=== PATIENT | female | born 1980 | race Caucasian/White ===

== ENCOUNTER 2019-11-23 13:06 | Outpatient (CLI) | payer BC, SELFPAY ==
--- NOTE | 2019-11-28 10:36 | ONC FU_ITS ---
[facility] Patient Note Patient: Ghada Avlarez Unit #: [id number]: [id number] Dictated By: Chris NogueraDate of Visit: Nov 23, 2019 Onc MED Follow-Up/Prog Note Chief Complaint: Vaginal cancer. 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 She had presented to Dr. Chase with complaint of enlarging glands in the vaginal area. Her exam showed 2 lumps within the posterior vaginal wall in the area of scarring, each measuring 1 to 1-1/2 cm. On 10/12/2018 she underwent excision of vaginal wall cysts and anal sphincteroplasty. The operative report describes the first cyst having been completely excised. With the second cyst, in the area closer to the hymenal ring, she was found to have multiple small thick mucousy cystic areas. The excised area was estimated at 1-1/2 to 2 cm in diameter. Pathology was consistent with mucinous adenocarcinoma. Staging CT abdomen/pelvis on 10/19/2018 showed evidence of prior gastric sleeve procedure and appendectomy but no acute findings and no evidence of neoplastic process. A 4 mm right lower lobe lung nodule was incompletely included. Further evaluation with PET/CT on 10/23/2018 showed increased uptake in the vaginal canal with SUV 15.2. It was noted to possibly represent postsurgical inflammation, but sites of residual malignancy could not be excluded. There was no evidence of metastatic disease. She was referred to [facility] for further evaluation and management. She then underwent radiation concurrently with weekly cisplatin starting 12/28/2018. As of 02/10/2019 she had received 6 cycles of weekly cisplatin. Her treatment was complicated by anemia and neutropenia, severe enough that she required transfusion and growth factor support. 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 Per genetic counseling patient is high risk for hematological malignancies, somewhere in the range of 30-45% lifetime risk. There is additional risk of squamous cell carcinoma of head/neck, and skin and anogenital track cancers are also greatly increased and typically arises from leukoplakia. She is also at increased risk for idiopathic pulmonary fibrosis or idiopathic liver fibrosis. Screening recommendations in patients with dyskeratosis congenita include CBC every 6 month to annually, baseline bone marrow with cytogenetics and molecular studies, annual dermatology consultation, annual [employer] screening for women, and ENT evaluation every 3-5 years with laryngoscopy. She is scheduled to have bone marrow aspiration/biopsy with her followups at [facility]. Her medical history is significant for previous gastric sleeve procedure with subsequent B12 deficiency and vitamin D deficiency. She has metabolic syndrome and suspected celiac disease. She has chronic musculoskeletal pain, felt to be consistent with fibromyalgia syndrome, though she also was noted to have persistently elevated CRP and sedimentation rate. She has restless leg syndrome. She is a nonsmoker. She does not drink alcohol. Ms. Alvarez is here today for a rescheduled follow-up. She states that she has been [facility] recently and had a really good work-up there. There is no sign of any cancer. States she got really good news. She continues to have swelling in her lower extremities despite the Lasix. She also continues to have very tender skin and muscles. We did review her labs from October including her tick panel which was negative. She was vitamin D deficient at 27 at that time. She states that is been an ongoing problem. Her vitamin B-12 on the low side of normal at 355. She states she has had B12 supplements in the past and this made her feel a lot better. She denies any new pain. She states other than the swelling in her legs and the skin/muscle tenderness she feels pretty good. She denies any fever or chills. She said no mouth sores, sore throat or difficulty swallowing. Her recent vaginal infection has finally cleared up. She is had no further problems. She denies any nausea or vomiting. She has had no constipation or diarrhea. Her ECOG is 0. Past Medical History: B 12 deficiency Bone pain Celiac disease Lung nodule Metabolic syndrome Myalgia Restless leg syndrome Short telomere syndrome/dyskeratosis congenita Vitamin d deficiency Past Surgical History: Appendectomy Bilateral laser eye surgery Gastric sleeve Left ACL repair Repair of left knee Allergies: cinnamon oil Medications: Furosemide 2 Tablet (of 40 mg) Oral daily K-Tab 1 Tablet (of 10 meq) Tablet, controlled release Oral daily Osphena 1 Tablet (of 60 mg) Oral b.i.d. Family History: Ms. Alvarez's mother is alive. Ms. Alvarez's father at age 48: leukemia. Her father of leukemia at age 48, presumably related to the short telomere syndrome. Social History: Ms. Alvarez is and she is an unknown. Ms. Alvarez has never smoked. She has no history of drinking. She is a nonsmoker. She does not drink alcohol. Review Of Symptoms: Constitutional some fatigue but remains active. Allergic/Immunologic No reactions. Eyes Denies significant visual changes. No diplopia. No amaurosis. ENMT Denies changes in hearing, sore throat, mouth sores, difficulty or changes in swallowing ability, and/or sinus drainage. Hematologic/Lymphatic Denies easy bruising or bleeding. The patient denies any tender or palpable lymph nodes. Respiratory Denies dyspnea on exertion, chest pain, cough or hemoptysis. Denies orthopnea. Cardiovascular Denies anginal chest pain, palpitations or orthopnea. Gastrointestinal Denies nausea, vomiting, diarrhea, GI bleeding, or constipation. Denies change in bowel habits and/or stool color, no heartburn or early satiety. Genitourinary (F) No hematuria, hesitancy, incontinence, vaginal bleeding, discharge or other problems with urination. Musculoskeletal Muscles and skin/tissue hurts when you touch it at times . My cat touched my rib area and the tenderness was unbelievable . Swelling in her lower extremities. Integumentary Denies chronic rashes, inflammation, ulcerations or skin changes. Neurologic Denies headache, blurred vision, and no areas of focal weakness or numbness. Normal gait. No sensory problems. Psychiatric Denies insomnia, depression, sarah or mood swings. Vital Signs: Performed on Nov 23, 2019 13:14 Height - 66.00 in Weight - 213.2 lbs (HIGH) BSA - 2.06 sq.m BMI - 34.41 (HIGH) Temperature - 98.0 F (LOW) Pulse - 75 /min Respiration - 24 /min BP - 119/71 mm(hg) O2 Sat - 98 % Pain - 0,0 - Fully active, able to carry on all predisease activities without restrictions. (ECOG) Physical Examination: Constitutional Alert, oriented, no acute distress. Skin pink, warm and dry. Head Normocephalic; atraumatic. Eyes Conjunctivae and sclerae are clear and without icterus. Pupils are reactive and equal. Neck Supple without masses or thyromegaly. No jugular venous distension. Hematologic/Lymphatic No petechiae or purpura. Respiratory Lungs are clear to auscultation without rhonchi or wheezing. Cardiovascular Regular rate and rhythm of heart without murmurs,clicks, gallops or rubs. Back/Spine Non-tender to palpation. Extremities No visible deformities, no cyanosis, clubbing. 1-2+ bilateral lower extremity edema. Musculoskeletal No tenderness or swelling, normal range of motion without obvious weakness. Integumentary No rashes or lesions. Neurologic No sensory or motor deficits, normal cerebellar function, normal gait. Psychiatric Alert and oriented times three. Coherent speech. Verbalizes understanding of our discussions today. Laboratory: Impression: 1. Patient with mucinous adenocarcinoma involving posterior vaginal wall cysts. By TNM classification her disease would be stage I (T1, N0, M0), but the relevance of that is uncertain with a mucinous adenocarcinoma. 2. She underwent local excision of 2 areas of involvement in the vaginal wall on 10/12/2018. 3. She then underwent radiation concurrently with weekly cisplatin chemotherapy, completed on 02/10/2019. 4. Her treatment was complicated by anemia and severe neutropenia, requiring transfusion and growth factor support. 5. 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 Her other medical illnesses include: 6. Metabolic syndrome. 7. She is status post gastric sleeve procedure. 8. She has a history of B12 deficiency and vitamin D deficiency. 9. She has had chronic musculoskeletal pain, felt to be consistent with fibromyalgia syndrome. 10. She has restless leg syndrome. 11. Celiac disease was suspected, but not confirmed. At this point she does appear to be showing gradual recovery following her chemoradiation. She continues to have muscle/skin tenderness of unknown etiology. She continues to have lower extremity edema. Plan: 1. Vitamin D 1.25 mg (50,000 IU) weekly x 12 weeks then monthly for vitamin D deficiency. Also B12 1000 mg weekly x 4 weeks then monthly-plans to administer at home. 2. Bumex-stop Lasix 3. Monthly port flush and CBC, CMP. In the interim may add BMP to port flush if on Bumex more that 3 days at a time-she does have potassium at home and was encouraged to take one daily with Bumex. 4. Plan for followup after her re evaluation at [facility] in January 2020. 5. Ms Alvarez was encouraged to call us in the interim if questions or problems arise. Signed By: Chris Noguera-, AOCNP Samm Crespo MD <<Signature on File>>
== END 2019-11-23 13:07 | disposition home or self-care (01) ==
LOC: ONCMED 13:08
PROVIDERS: Family Provider Electrodiagnostic Medicine; PCP Electrodiagnostic Medicine; Visit Provider Nurse Practitioner
DX: Z08 Encounter for follow-up examination after completed treatment for malignant neoplasm (principal); Z85.44 Personal history of malignant neoplasm of other female genital organs; E53.8 Deficiency of other specified B group vitamins; E55.9 Vitamin D deficiency, unspecified; K90.89 Other intestinal malabsorption; M79.7 Fibromyalgia; G25.81 Restless legs syndrome; R60.0 Localized edema; Q82.8 Other specified congenital malformations of skin; Z98.84 Bariatric surgery status; Z79.899 Other long term (current) drug therapy; Z92.3 Personal history of irradiation; Z92.21 Personal history of antineoplastic chemotherapy
CPT/HCPCS: 99214

== ENCOUNTER 2020-01-20 08:51 | Outpatient (CLI) | payer BC, SELFPAY ==
[2020-01-20 09:46] LABS: Alanine Aminotransferase 13 U/L (0-33); Albumin Level 4.2 g/dL (3.5-5.2); Alkaline Phosphatase 131 IU/L (35-105); Anion Gap 14.2 (5-19); Aspartate Amino Transferase 18 U/L (0-32); Blood Urea Nitrogen 11 mg/dL (6-20); Calcium 9.8 mg/dL (8.5-10.5); Carbon Dioxide 27 mmol/L (22-29); Chloride 107 mmol/L (98-107); Globulin 3.2 g/dL (1.3-4.6); Glucose 80 mg/dL (65-115); Osmolality Calculated 293 mOsm/kg (285-295); Potassium 4.2 mmol/L (3.5-5.1); Sodium 144 mmol/L (136-145); Total Bilirubin 0.9 mg/dL (0.15-1.2); Total Protein 7.4 g/dL (6.6-8.7)
[2020-01-20 09:55] LABS: Basophils % 0.4 %; Eosinophils # 0.1 10^3/uL (0.0-0.8); Eosinophils % 1.7 %; Hematocrit 37.4 % (37.0-47.0); Hemoglobin 12.6 g/dL (11.5-15.3); Lymphocytes # 1.1 10^3/uL (0.8-4.8); Lymphocytes % 20.7 %; Mean Corpuscular HGB Conc 33.7 g/dL (30.0-36.0); Mean Corpuscular Hemoglobin 33.6 pg (28.0-34.0); Mean Corpuscular Volume 99.7 fL (81-99); Monocytes # 0.6 10^3/uL (0.2-0.9); Monocytes % 11.8 %; Neutrophils # 3.4 10^3/uL (1.8-7.7); Neutrophils % 64.8 %; Nucleated Red Blood Cells % 0 %; Platelet Count 204 10^3/cmm (130-400); Red Blood Count 3.75 10^6/uL (4.1-5.3); Red Cell Distribution Width 12.9 % (12.1-15.1); White Blood Count 5.2 10^3/uL (4.0-10.0)
== END 2020-01-20 08:52 | disposition home or self-care (01) ==
LOC: ONCMED 08:53
PROVIDERS: Family Provider Electrodiagnostic Medicine; PCP Electrodiagnostic Medicine; Visit Provider Nurse Practitioner
DX: C52 Malignant neoplasm of vagina (principal); E55.9 Vitamin D deficiency, unspecified; D64.9 Anemia, unspecified
CPT/HCPCS: 36591; 80053; 85025

== ENCOUNTER 2020-01-22 09:50 | Emergency (ER) | payer BC, SELFPAY ==
[2020-01-22 09:55] VITALS: BP 128/66; PULSE 57; RESP 17; TEMP 36.9; O2SAT 99; BMI 34.9
--- NOTE | 2020-01-22 10:05 | ED_ITS ---
Entered by Carmen Butler, acting as scribe for Domingo Reyna DO HPI - Fever General: Chief Complaint: General Medical Stated Complaint: flu like symptoms Time Seen by Provider: 01/22/20 09:52 Source: patient Mode of arrival: ambulatory Limitations: no limitations History of Present Illness: HPI Narrative: 45 yo Female presents to ED with complaint of fever and flu like symptoms. Pt states that she has beat cancer, muscinocarcinoma, and since then her immune system has tanked. Pt states that she has had a fever, generalized weakness, and fatigue. Pt states that she has been coughing some and had some green sputum. Pt states that [facility] nurse told her that she had some wheezing. Pt states that she has also had some diarrhea. Pt states that she is no longer receiving treatment for her cancer since last year. Pt states that her primary care physician is Dr. Guo. MD elicited complaint: fever, malaise and weakness Pertinent past history: immunosuppression Onset (ago): week(s) Exacerbating factors: nothing Relieving factors: nothing Associated symptoms: Reports cough and diarrhea; Deny nausea or vomiting Review of Systems General: Reports: 10 or more systems reviewed and unremarkable except in HPI and below GI: Reports: diarrhea; Denies: nausea or vomiting PFSH ED PFSH: Medical History Menopause ovarian failure She was counseled regarding FSH level was suggesting ovarian failure due to radiation therapy her for vaginal malignancy. He was encouraged to continue use Osphena for her dyspareunia. Follow-up in one month. Mucinous adenocarcinoma Incidental finding at the time of excision of posterior vaginal wall cyst performed on 10/12/2018. Patient being evaluated by general surgery. Patient has also been referred to [facility] in [place] by Dr. Hardin. She was counseled regarding the pathology report of mucinous adenocarcinoma. She recently had a PET scan that was negative. She was informed by general surgeon that PET scan was negative and she is concern. 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 Pseudomyxoma peritonei develops at a variable rate, but may grow at a slower rate (indolent) than other malignancies within the abdomen which can explain the negative PET scan and incidental finding in the rectovaginal biopsy. If this is in fact pseudomyxoma peritonei the patient will be better served by referring her to a center with experience with this rare disease of approximately 2 cases per million individuals. I [facility] Dr. Wei Gonzalez who is nationally recognized expert in treating Mucinous adenocarcinomas. 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 This is a commonly observed side effect of such treatment. Her vaginal stenosis can be graded to grade 2, meaning vaginal narrowing and shortening interfering with sexual function. She was counseled regarding all treatment modalities include irregular nonnarcotic pain medication, intermittent hormonal cream, vaginal dilatation, and use of artificial lubrication. She referred she was advised not to use any hormones. Would consider treating with Osphena since is not hormonal treatment, but she was advised to continue with vaginal dilation stretch the vaginal mucosa breakdown adhesions to maintain vaginal patency. time 30 min Surgical History History of appendectomy History of dilation and curettage History of gastric surgery History of radial keratotomy History of repair of anterior cruciate ligament of left knee S/P laser cataract surgery Status post surgery (~10/12/18) Excision of vaginal wall cyst--Performed by Dr. Douglas Chase at [facility] in [place], [place]. Final pathology showed mucinous adenocarcinoma. Family History Grandmother Heart disease Paternal Lupus Paternal Diabetes Paternal Hypertension Paternal Unknown Patient denies medical problems Denies family history of: stroke, hypercholesterolemia, thryoid problems, breast cancer, ovarian cancer, uterine cancer,or colon cancer Social History Smoking and tobacco status: never smoked Alcohol intake: current Alcohol intake frequency: holidays/special occasions on ly Physical Exam Const: COMMON NORMALS: no apparent distress, average body habitus, oriented x3, no limitations, healthy appearing, alert and well nourished HENMT: COMMON NORMALS: normocephalic, head/scalp atraumatic, hearing grossly normal bilaterally, external ears normal, EAC's normal, TM's normal bilaterally, external nose normal, nasal mucous membranes and turbinates normal, moist oral mucous membranes, oropharynx normal, dentition normal and gingiva normal HEAD & SCALP: normocephalic and atraumatic NOSE: external nose normal and nasal mucous membranes and turbinates normal EXTERNAL EAR: Yes external ears normal EXTERNAL AUDITORY CANAL: EAC's normal TYMPANIC MEMBRANE: TM's normal bilaterally Eye: COMMON NORMALS: PERRL, EOMs intact bilaterally, conjunctivae normal, no scleral icterus, no papilledema, normal visual madrid by confrontation and fundi normal bilaterally CONJUNCTIVA: Yes conjunctivae normal PUPIL: Yes PERRL DIRECT OPHTHALMOSCOPY: Yes no papilledema and Yes fundi normal bilaterally Neck/C-Spine: COMMON NORMALS: full ROM, no lymphadenopathy, supple, no meningeal signs, no JVD, thyroid normal and no carotid bruits THYROID: thyroid normal Chest: COMMONS NORMALS: inspection of chest normal and palpation of chest normal Resp: COMMON NORMALS: normal respiratory effort, no retractions, no use of accessory muscles, clear to auscultation bilaterally and percussion normal AUSCULTATION: clear to auscultation bilaterally PERCUSSION: percussion normal Cardio: COMMON NORMALS: no JVD, regular rate, regular rhythm, S1 normal heart sound, S2 normal heart sound, no gallops, no clicks, no murmurs, no rub and peripheral pulses 2+ throughout RATE: regular rate RHYTHM: regular rhythm HEART SOUNDS: S1 normal and S2 normal PERIPHERAL PULSES: pulses 2+ throughout GI: COMMON NORMALS: normal to inspection, nondistended, normoactive bowel sounds, soft to palpation, non-tender, no hepatosplenomegaly, no masses and no bruits PALPATION: Yes soft and Yes no hepatosplenomegaly : COMMON NORMALS: Yes no CVA tenderness and Yes external appearance normal BLADDER/KIDNEY EXAM: Yes no CVA tenderness Back/Pelvis: COMMON NORMALS: no CVA tenderness, thoracic and lumbar spine normal to inspection, no thoracic nor lumbar tenderness, thoraco-lumbar ROM normal and straight leg raise negative bilaterally Extremity: COMMON NORMALS: normal to inspection, full ROM, normal capillary refill, no joint enlargement, no clubbing, cyanosis or edema, no calf tenderness and no pedal edema Neuro: COMMON NORMALS: oriented x3 SENSORIUM/ORIENTATION: Yes alert MENINGEAL SIGNS: Yes no meningeal signs Skin: COMMON NORMALS: no rashes or lesions noted, no wounds, skin turgor normal, no jaundice, no petechiae and no mottling GENERAL SKIN EXAM: no rashes or lesions noted and turgor normal Course Vital Signs: Vital signs: Vital Signs Temperature 98.4 F 01/22/20 09:55 Pulse Rate 57 L 01/22/20 09:55 Respiratory Rate 17 01/22/20 09:55 Blood Pressure 128/66 01/22/20 09:55 Pulse Oximetry 99 01/22/20 09:55 MDM - Fever Lab Data: Labs: Lab Results 01/22/20 01/22/20 01/22/20 Range/Units 10:20 10:20 10:20 WBC 4.9 (4.0-10.0) 10^3/ uL RBC 3.76 L (4.1-5.3) 10^6/u L Hgb 12.5 (11.5-15.3) g/dL Hct 37.6 (37.0-47.0) % MCV 100.0 H (81-99) fL MCH 33.2 (28.0-34.0) pg MCHC 33.2 (30.0-36.0) g/dL RDW 12.9 (12.1-15.1) % Plt Count 186 (130-400) 10^3/c mm MPV 9.7 (7.4-10.4) fL Neut % (Auto) 60.4 % Lymph % (Auto) 24.6 % Juncos % (Auto) 11.7 % Eos % (Auto) 2.3 % Baso % (Auto) 0.4 % Neut # (Auto) 2.9 (1.8-7.7) 10^3/u L Lymph # (Auto) 1.2 (0.8-4.8) 10^3/u L Juncos # (Auto) 0.6 (0.2-0.9) 10^3/u L Eos # (Auto) 0.1 (0.0-0.8) 10^3/u L Baso # (Auto) 0.0 (0.0-0.1) 10^3/u L Nucleated RBC % (a uto) 0 % Nucleated RBCs # 0.0 /100WBC Sodium 140 (136-145) mmol/L Potassium 4.0 (3.5-5.1) mmol/L Chloride 105 (98-107) mmol/L Carbon Dioxide 24 (22-29) mmol/L Anion Gap 15.0 (5-19) BUN 11 (6-20) mg/dL Creatinine 0.7 (0.5-0.9) mg/dL GFR Calculation 92.2 (90-130) mL/min Glucose 113 (65-115) mg/dL Calculated Osmolal ity 287 (285-295) mOsm/k g Lactate 1.0 (0.5-2.2) mmol/L Calcium 9.6 (8.5-10.5) mg/dL Total Bilirubin 1.1 (0.15-1.2) mg/dL AST 15 (0-32) U/L ALT 11 (0-33) U/L Alkaline Phosphata se 129 H (35-105) IU/L Total Protein 7.1 (6.6-8.7) g/dL Albumin 3.8 (3.5-5.2) g/dL Globulin 3.3 (1.3-4.6) g/dL Urine Color (Yellow) Urine Appearance (CLEAR) Urine pH (5-7) Ur Specific Gravit y (1.005-1.030) Urine Protein (Negative) Urine Glucose (UA) (Normal) Urine Ketones (Negative) Urine Blood (Negative) Urine Nitrate (Negative) Urine Bilirubin (NEGATIVE) Urine Urobilinogen (Negative) mg/dL Ur Leukocyte Danielle ase (Negative) Urine RBC (0-2) /hpf Urine WBC (0-5) /hpf Ur Squamous Epith Cells (0-5) Urine Bacteria (NONE) Influenza Type A A g (Negative) POC Influenza B Ag (Negative) 01/22/20 01/22/20 Range/Units 10:35 11:47 WBC (4.0-10.0) 10^3/ uL RBC (4.1-5.3) 10^6/u L Hgb (11.5-15.3) g/dL Hct (37.0-47.0) % MCV (81-99) fL MCH (28.0-34.0) pg MCHC (30.0-36.0) g/dL RDW (12.1-15.1) % Plt Count (130-400) 10^3/c mm MPV (7.4-10.4) fL Neut % (Auto) % Lymph % (Auto) % Juncos % (Auto) % Eos % (Auto) % Baso % (Auto) % Neut # (Auto) (1.8-7.7) 10^3/u L Lymph # (Auto) (0.8-4.8) 10^3/u L Juncos # (Auto) (0.2-0.9) 10^3/u L Eos # (Auto) (0.0-0.8) 10^3/u L Baso # (Auto) (0.0-0.1) 10^3/u L Nucleated RBC % (a uto) % Nucleated RBCs # /100WBC Sodium (136-145) mmol/L Potassium (3.5-5.1) mmol/L Chloride (98-107) mmol/L Carbon Dioxide (22-29) mmol/L Anion Gap (5-19) BUN (6-20) mg/dL Creatinine (0.5-0.9) mg/dL GFR Calculation (90-130) mL/min Glucose (65-115) mg/dL Calculated Osmolal ity (285-295) mOsm/k g Lactate (0.5-2.2) mmol/L Calcium (8.5-10.5) mg/dL Total Bilirubin (0.15-1.2) mg/dL AST (0-32) U/L ALT (0-33) U/L Alkaline Phosphata se (35-105) IU/L Total Protein (6.6-8.7) g/dL Albumin (3.5-5.2) g/dL Globulin (1.3-4.6) g/dL Urine Color Yellow (Yellow) Urine Appearance Sl hazy (CLEAR) Urine pH 7 (5-7) Ur Specific Gravit y 1.010 (1.005-1.030) Urine Protein Neg (Negative) Urine Glucose (UA) Norm (Normal) Urine Ketones Negative (Negative) Urine Blood Neg (Negative) Urine Nitrate Negative (Negative) Urine Bilirubin Neg (NEGATIVE) Urine Urobilinogen Norm (Negative) mg/dL Ur Leukocyte Danielle ase 2+ H (Negative) Urine RBC 0-4 H (0-2) /hpf Urine WBC 15-25 H (0-5) /hpf Ur Squamous Epith Cells 0-4 H (0-5) Urine Bacteria 1+ H (NONE) Influenza Type A A g Negative (Negative) POC Influenza B Ag Negative (Negative) Imaging Data^: CXR: Radiologist's impression: [facility] [address] [place] [address] XRay Report Signed Patient: Ghada Alvarez #: [id number] : 1980Acct#:[id number] Age/Sex: 39 / FADM Date: 01/22/20 [facility] Attending Dr: Ordering Provider/Ordering MD: Domingo Reyna DO Date of Service: 01/22/20 Procedure(s): XR chest 1V portable [id number] Accession Number(s): [id number] Report Number: [id number] PROCEDURE INFORMATION: Exam: XR Chest, 1 View Exam date and time: 01/22/2020 10:12 AM Age: 39 years old Clinical indication: Dyspnea; Prior surgery; Surgery date: 6+ months; Surgery type: Port TECHNIQUE: Imaging protocol: XR of the chest Views: 1 view. COMPARISON: No relevant prior studies available. FINDINGS: Tubes, catheters and devices: Right IJ medication port with tip near the cavoatrial junction. Lungs: Lungs well expanded with no consolidation. Pleural space: Unremarkable. No evidence of pleural effusion or pneumothorax. Heart/Mediastinum: Cardiac silhouette upper normal. Bones/joints: Unremarkable. XR/XR chest 1V portable [id number] IMPRESSION: No acute radiographic findings. Dictated By:Barry Ha MD Signed By:Barry Ha MDSigned Date/Time:01/22/20 1101 DD/ 1100 Discharge Plan Discharge Patient Disposition: Home, Self-Care Clinical Impression: Sinusitis Qualifiers: Sinusitis location: maxillary Chronicity: acute Recurrence: non-recurrent Qualified Code(s): J01.00 - Acute maxillary sinusitis, unspecified Urinary tract infection Qualifiers: Urinary tract infection type: acute cystitis Hematuria presence: with hematuria Qualified Code(s): N30.01 - Acute cystitis with hematuria Condition: Stable Prescriptions: New Augmentin 875-125 mg tablet 1 tab PO BID Qty: 30 RF: 0 prednisone 10 mg tablets,dose pack See Rx Instructions .ROUTE .COMPLEX Qty: 21 RF: 0 No Action Osphena 60 mg tablet 60 mg PO DAILY RF: 0 bumetanide 2 mg tablet 2 mg PO DAILY RF: 0 furosemide 40 mg tablet 40 mg PO DAILY PRN (Reason: swelling) RF: 0 Discharge Orders: Discharge Order (Routine); Ordered 01/22/20 Ordered By: Domingo Reyna Referrals: Kedar Guo DO [Primary Care Provider] - Patient Instructions: Sinusitis (ED) Coding Level of Care Code ED Rooming House Keeper for Chg Fwd Exam Comprehensive The documentation recorded by the Luke pinedo Carmen, accurately reflects the service I personally performed and the decisions made by Maribell mar Donald P, DO Jan 22, 2020 09:50
--- NOTE | 2020-01-22 10:10 | XRR_ITS ---
PROCEDURE INFORMATION: Exam: XR Chest, 1 View Exam date and time: 01/22/2020 10:12 AM Age: 39 years old Clinical indication: Dyspnea; Prior surgery; Surgery date: 6+ months; Surgery type: Port TECHNIQUE: Imaging protocol: XR of the chest Views: 1 view. COMPARISON: No relevant prior studies available. FINDINGS: Tubes, catheters and devices: Right IJ medication port with tip near the cavoatrial junction. Lungs: Lungs well expanded with no consolidation. Pleural space: Unremarkable. No evidence of pleural effusion or pneumothorax. Heart/Mediastinum: Cardiac silhouette upper normal. Bones/joints: Unremarkable. XR/XR chest 1V portable [id number] IMPRESSION: No acute radiographic findings.
--- NOTE | 2020-01-22 10:30 | PC.NURSE ---
Implanted venous port accessed ( right upper chest ). Sterile technique used.
[2020-01-22 10:38] LABS: Basophils % 0.4 %; Eosinophils # 0.1 10^3/uL (0.0-0.8); Eosinophils % 2.3 %; Hematocrit 37.6 % (37.0-47.0); Hemoglobin 12.5 g/dL (11.5-15.3); Lymphocytes # 1.2 10^3/uL (0.8-4.8); Lymphocytes % 24.6 %; Mean Corpuscular HGB Conc 33.2 g/dL (30.0-36.0); Mean Corpuscular Hemoglobin 33.2 pg (28.0-34.0); Mean Platelet Volume 9.7 fL (7.4-10.4); Monocytes # 0.6 10^3/uL (0.2-0.9); Monocytes % 11.7 %; Neutrophils # 2.9 10^3/uL (1.8-7.7); Neutrophils % 60.4 %; Nucleated Red Blood Cells % 0 %; Platelet Count 186 10^3/cmm (130-400); Red Blood Count 3.76 10^6/uL (4.1-5.3); Red Cell Distribution Width 12.9 % (12.1-15.1); White Blood Count 4.9 10^3/uL (4.0-10.0)
[2020-01-22] MEDS: sodium chloride 0.9% 500 ML IV (10:45)
[2020-01-22 10:55] LABS: Alanine Aminotransferase 11 U/L (0-33); Albumin Level 3.8 g/dL (3.5-5.2); Alkaline Phosphatase 129 IU/L (35-105); Aspartate Amino Transferase 15 U/L (0-32); Blood Urea Nitrogen 11 mg/dL (6-20); Calcium 9.6 mg/dL (8.5-10.5); Carbon Dioxide 24 mmol/L (22-29); Chloride 105 mmol/L (98-107); Creatinine Clr Calc Pharmacy 120.7179; Globulin 3.3 g/dL (1.3-4.6); Glomerular Filtration Rate 92.2 mL/min (90-130); Glucose 113 mg/dL (65-115); Osmolality Calculated 287 mOsm/kg (285-295); Sodium 140 mmol/L (136-145); Total Bilirubin 1.1 mg/dL (0.15-1.2); Total Protein 7.1 g/dL (6.6-8.7)
[2020-01-22 11:06] LABS: Influenza A by IFA Negative (Negative); Influenza B by IFA Negative (Negative)
[2020-01-22 11:58] LABS: Add Urine Microscopic? YES; Bilirubin Urine Neg (NEGATIVE); Blood Urine Neg (Negative); Glucose Urine UA Norm (Normal); Ketones Urine Negative (Negative); Leukocyte Esterase Urine 2+ (Negative); Nitrate Urine Negative (Negative); Protein Urine Neg (Negative); Urine Appearance SL Hazy (CLEAR); Urine Color Yellow (Yellow); Urobilinogen Urine Norm (Negative); pH Urine 7 (5-7)
[2020-01-22 12:06] LABS: Add Urine Culture? Yes; Bacteria Urine 1+; RBC Urine 0-4 /hpf (0-2); Squamous Epithelial Cell Urine 0-4 (0-5); WBC Urine 15-25 /hpf (0-5)
== END 2020-01-22 12:45 | disposition home or self-care (01) ==
PROVIDERS: Emergency Provider Family Medicine; Family Provider Electrodiagnostic Medicine; PCP Electrodiagnostic Medicine
DX: J32.9 Chronic sinusitis, unspecified (principal); N39.0 Urinary tract infection, site not specified
CPT/HCPCS: 12345; 36415; 71045; 80053; 81001; 83605; 85025; 87040; 87086; 87804; 96360; 99282; 99283; A9270; J7040

== ENCOUNTER 2020-02-09 19:03 | Emergency (ER) | payer BC, SELFPAY ==
[2020-02-09 19:11] VITALS: BP 126/70; PULSE 56; RESP 16; TEMP 36.8; O2SAT 97; BMI 34.9
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
[2020-02-09] MEDS: ondansetron 2 mg/ML SDV 2 mL 4 MG IVP (20:31)
[2020-02-09] MEDS: morphine 4 mg/mL SDV 1 mL IVP (20:32)
[2020-02-09] MEDS: cyclobenzaprine 10 mg Tablet PO (21:49)
[2020-02-09] MEDS: HYDROcodone-acetaminophen 5-325 mg Tablet 2 TAB PO (21:50)
[2020-02-09 22:12] VITALS: BP 136/84; PULSE 86; RESP 16; O2SAT 99
== END 2020-02-09 22:14 | disposition home or self-care (01) ==
PROVIDERS: Emergency Provider Physician Assistant; Family Provider Electrodiagnostic Medicine; PCP Electrodiagnostic Medicine
DX: S22.31XA Fracture of one rib, right side, initial encounter for closed fracture (principal); V29.9XXA Motorcycle rider (driver) (passenger) injured in unspecified traffic accident, initial encounter
CPT/HCPCS: 12345; 71250; 96374; 96375; 99282; 99283; J1642; J2270; J2405

== ENCOUNTER 2020-02-20 13:16 | Outpatient (CLI) | payer BC, SELFPAY ==
[2020-02-20 13:48] LABS: Basophils % 0.4 %; Eosinophils # 0.1 10^3/uL (0.0-0.8); Hematocrit 37.6 % (37.0-47.0); Hemoglobin 12.4 g/dL (11.5-15.3); Lymphocytes # 1.3 10^3/uL (0.8-4.8); Lymphocytes % 26.1 %; Mean Corpuscular Hemoglobin 32.8 pg (28.0-34.0); Mean Corpuscular Volume 99.5 fL (81-99); Mean Platelet Volume 9.4 fL (7.4-10.4); Monocytes # 0.8 10^3/uL (0.2-0.9); Neutrophils # 2.8 10^3/uL (1.8-7.7); Neutrophils % 56.1 %; Nucleated Red Blood Cells % 0 %; Platelet Count 199 10^3/cmm (130-400); Red Blood Count 3.78 10^6/uL (4.1-5.3); Red Cell Distribution Width 13.2 % (12.1-15.1)
[2020-02-20 14:04] LABS: Alanine Aminotransferase 11 U/L (0-33); Albumin Level 4.2 g/dL (3.5-5.2); Alkaline Phosphatase 131 IU/L (35-105); Anion Gap 16.1 (5-19); Aspartate Amino Transferase 16 U/L (0-32); Blood Urea Nitrogen 12 mg/dL (6-20); Calcium 9.7 mg/dL (8.5-10.5); Carbon Dioxide 25 mmol/L (22-29); Chloride 103 mmol/L (98-107); Globulin 3.2 g/dL (1.3-4.6); Glucose 79 mg/dL (65-115); Osmolality Calculated 285 mOsm/kg (285-295); Potassium 4.1 mmol/L (3.5-5.1); Sodium 140 mmol/L (136-145); Total Bilirubin 0.7 mg/dL (0.15-1.2); Total Protein 7.4 g/dL (6.6-8.7)
== END 2020-02-20 13:17 | disposition home or self-care (01) ==
LOC: ONCMED 13:16
PROVIDERS: Nurse Practitioner; Family Provider Electrodiagnostic Medicine; PCP Electrodiagnostic Medicine; Visit Provider Internal Medicine Medical Oncology
DX: C52 Malignant neoplasm of vagina (principal); R60.0 Localized edema; E55.9 Vitamin D deficiency, unspecified
CPT/HCPCS: 36591; 80053; 85025

== ENCOUNTER 2020-05-24 15:02 | Outpatient (RCR) | payer BC, MEDICAID, SELFPAY | END 2020-06-08 23:59 | disposition home or self-care (01) | LOC: SPT 15:02 | PROVIDERS: PCP Electrodiagnostic Medicine; Referring Provider Obstetrics & Gynecology; Visit Provider Obstetrics & Gynecology | DX: N95.2 Postmenopausal atrophic vaginitis (principal); N89.5 Stricture and atresia of vagina | CPT/HCPCS: 97110; 97161; 97530 ==

== ENCOUNTER 2020-06-09 06:00 | Outpatient (RCR) | payer BC, MEDICAID, SELFPAY | END 2020-07-09 23:59 | disposition home or self-care (01) | LOC: SPT 06:00 | PROVIDERS: PCP Electrodiagnostic Medicine; Referring Provider Obstetrics & Gynecology; Visit Provider Obstetrics & Gynecology | DX: N95.2 Postmenopausal atrophic vaginitis (principal) | CPT/HCPCS: 97110; 97530 ==

== ENCOUNTER 2020-06-20 16:21 | Outpatient (CLI) | payer BC, MEDICAID, SELFPAY | END 2020-06-20 16:22 | disposition home or self-care (01) | LOC: ONCMED 16:26 | PROVIDERS: PCP Electrodiagnostic Medicine; Visit Provider Internal Medicine Medical Oncology | DX: Z45.2 Encounter for adjustment and management of vascular access device (principal); C52 Malignant neoplasm of vagina; R60.0 Localized edema; E55.9 Vitamin D deficiency, unspecified | CPT/HCPCS: 96374; J1642 ==

== ENCOUNTER 2020-07-10 06:00 | Outpatient (RCR) | payer BC, MEDICAID, SELFPAY | END 2020-08-08 23:59 | disposition home or self-care (01) | LOC: SPT 06:00 | PROVIDERS: PCP Electrodiagnostic Medicine; Referring Provider Obstetrics & Gynecology; Visit Provider Obstetrics & Gynecology | DX: N95.2 Postmenopausal atrophic vaginitis (principal); N89.5 Stricture and atresia of vagina | CPT/HCPCS: 97110; 97140 ==

== ENCOUNTER → 2020-08-02 18:00 | Outpatient (BNVA) | payer BC, MEDICAID, SELFPAY | PROVIDERS: PCP Electrodiagnostic Medicine; Visit Provider Nurse Practitioner Family | DX: Z11.59 Encounter for screening for other viral diseases (principal) | CPT/HCPCS: 87635 ==

== ENCOUNTER 2020-08-09 06:00 | Outpatient (RCR) | payer BC, MEDICAID, SELFPAY | END 2020-09-08 23:59 | disposition home or self-care (01) | LOC: SPT 06:00 | PROVIDERS: PCP Electrodiagnostic Medicine; Referring Provider Obstetrics & Gynecology; Visit Provider Obstetrics & Gynecology | DX: N95.2 Postmenopausal atrophic vaginitis (principal); N89.5 Stricture and atresia of vagina | CPT/HCPCS: 97110; 97140; 97530 ==

== ENCOUNTER 2020-08-14 09:51 | Outpatient (CLI) | payer BC, MEDICAID, SELFPAY | END 2020-08-14 09:52 | disposition home or self-care (01) | PROVIDERS: PCP Electrodiagnostic Medicine; Visit Provider Internal Medicine Medical Oncology | DX: Z45.2 Encounter for adjustment and management of vascular access device (principal) | CPT/HCPCS: 96523 ==

== ENCOUNTER 2020-08-14 10:28 | Outpatient (CLI) | payer BC, MEDICAID, SELFPAY ==
--- NOTE | 2020-08-14 10:32 | MM_ITS ---
WS: [id number] BILATERAL SCREENING DIGITAL MAMMOGRAM WITH CAD HISTORY: SCREENING COMPARISON: 12/02/2018 Bilateral CC and MLO views submitted. Computer aided detection analyzed. Breast composition: The breasts are heterogeneously dense, which may obscure small masses. No suspici ous masses, microcalcifications or architectural distortion. Calcifications bilaterally breast. No fo jailyn clustering of calcifications. No distortion. MM/[place] [id number] IMPRESSION: BI-RADS: 2-Benign FOLLOW UP: 1 Year Follow-up
== END 2020-08-14 10:29 | disposition home or self-care (01) ==
LOC: RADSHAW 10:29
PROVIDERS: PCP Electrodiagnostic Medicine; Visit Provider Electrodiagnostic Medicine
DX: Z12.31 Encounter for screening mammogram for malignant neoplasm of breast (principal)
CPT/HCPCS: 77067

== ENCOUNTER → 2020-08-17 14:26 | Outpatient (BNVA) | payer MEDICAID, SELFPAY | PROVIDERS: PCP Electrodiagnostic Medicine; Visit Provider Nurse Practitioner Family | DX: Z20.828 Contact with and (suspected) exposure to other viral communicable diseases (principal) | CPT/HCPCS: 87635 ==

== ENCOUNTER → 2020-08-30 14:49 | Outpatient (BNVA) | payer BC, MEDICAID, SELFPAY | PROVIDERS: PCP Electrodiagnostic Medicine; Visit Provider Nurse Practitioner Family | DX: Z11.59 Encounter for screening for other viral diseases (principal) | CPT/HCPCS: 87635 ==

== ENCOUNTER 2020-09-09 06:00 | Outpatient (RCR) | payer BC, MEDICAID, SELFPAY | END 2020-10-08 23:59 | disposition home or self-care (01) | LOC: SPT 06:00 | PROVIDERS: PCP Electrodiagnostic Medicine; Visit Provider Obstetrics & Gynecology | DX: I89.0 Lymphedema, not elsewhere classified (principal); C80.0 Disseminated malignant neoplasm, unspecified | CPT/HCPCS: 97140; 97530 ==

== ENCOUNTER 2020-09-12 06:00 | Outpatient (RCR) | payer BC, MEDICAID, SELFPAY | END 2020-10-08 23:59 | disposition home or self-care (01) | LOC: SPT 06:00 | PROVIDERS: PCP Electrodiagnostic Medicine; Referring Provider Electrodiagnostic Medicine; Visit Provider Electrodiagnostic Medicine | DX: I89.0 Lymphedema, not elsewhere classified (principal); C80.0 Disseminated malignant neoplasm, unspecified | CPT/HCPCS: 97161 ==

== ENCOUNTER → 2020-09-18 12:44 | Outpatient (BNVA) | payer BC, MEDICAID, SELFPAY | PROVIDERS: PCP Electrodiagnostic Medicine; Visit Provider Nurse Practitioner Family | DX: Z20.828 Contact with and (suspected) exposure to other viral communicable diseases (principal); Z11.59 Encounter for screening for other viral diseases | CPT/HCPCS: 87635 ==

== ENCOUNTER 2020-11-12 09:54 | Outpatient (CLI) | payer MEDICAID, SELFPAY | END 2020-11-12 09:55 | disposition home or self-care (01) | LOC: WOUND 09:54 | PROVIDERS: PCP Electrodiagnostic Medicine; Visit Provider Nurse Practitioner Family | DX: T81.31XA Disruption of external operation (surgical) wound, not elsewhere classified, initial encounter (principal); Y83.8 Other surgical procedures as the cause of abnormal reaction of the patient, or of later complication, without mention of misadventure at the time of the procedure; L97.828 Non-pressure chronic ulcer of other part of left lower leg with other specified severity | CPT/HCPCS: 11042; 87070; 87075; 87077; 87186; 87205; G0463 ==

== ENCOUNTER 2020-11-22 08:17 | Outpatient (CLI) | payer OTHER, MEDICAID, SELFPAY | END 2020-11-22 08:18 | disposition home or self-care (01) | LOC: WOUND 08:18 | PROVIDERS: PCP Electrodiagnostic Medicine; Visit Provider Nurse Practitioner Family | DX: T81.31XA Disruption of external operation (surgical) wound, not elsewhere classified, initial encounter (principal); Y83.8 Other surgical procedures as the cause of abnormal reaction of the patient, or of later complication, without mention of misadventure at the time of the procedure | CPT/HCPCS: 11042 ==

== ENCOUNTER 2020-12-06 07:54 | Outpatient (CLI) | payer OTHER, MEDICAID, SELFPAY | END 2020-12-06 07:55 | disposition home or self-care (01) | LOC: WOUND 07:54 | PROVIDERS: PCP Electrodiagnostic Medicine; Visit Provider Nurse Practitioner Family | DX: T81.31XA Disruption of external operation (surgical) wound, not elsewhere classified, initial encounter (principal); Y83.8 Other surgical procedures as the cause of abnormal reaction of the patient, or of later complication, without mention of misadventure at the time of the procedure | CPT/HCPCS: 11042 ==

== ENCOUNTER 2020-12-13 07:54 | Outpatient (CLI) | payer OTHER, MEDICAID, SELFPAY | END 2020-12-13 07:55 | disposition home or self-care (01) | LOC: WOUND 07:55 | PROVIDERS: Visit Provider Nurse Practitioner Family | DX: T81.31XA Disruption of external operation (surgical) wound, not elsewhere classified, initial encounter (principal); Y83.8 Other surgical procedures as the cause of abnormal reaction of the patient, or of later complication, without mention of misadventure at the time of the procedure | CPT/HCPCS: 11042 ==

== ENCOUNTER 2020-12-31 15:52 | Outpatient (RCR) | payer OTHER, MEDICAID, SELFPAY | END 2021-01-06 23:59 | disposition home or self-care (01) | LOC: SPT 15:52 | PROVIDERS: PCP Electrodiagnostic Medicine; Referring Provider Nurse Practitioner Family; Visit Provider Nurse Practitioner Family | DX: Z47.89 Encounter for other orthopedic aftercare (principal) | CPT/HCPCS: 97161 ==

== ENCOUNTER 2021-01-03 09:28 | Outpatient (CLI) | payer OTHER, MEDICAID, SELFPAY | END 2021-01-03 09:29 | disposition home or self-care (01) | LOC: WOUND 09:29 | PROVIDERS: PCP Electrodiagnostic Medicine; Visit Provider Nurse Practitioner Family | DX: T81.31XA Disruption of external operation (surgical) wound, not elsewhere classified, initial encounter (principal); Y83.8 Other surgical procedures as the cause of abnormal reaction of the patient, or of later complication, without mention of misadventure at the time of the procedure | CPT/HCPCS: 11042 ==

== ENCOUNTER 2021-01-07 06:00 | Outpatient (RCR) | payer MEDICAID, SELFPAY | END 2021-02-06 23:59 | disposition home or self-care (01) | LOC: SPT 06:00 | PROVIDERS: PCP Electrodiagnostic Medicine; Referring Provider Nurse Practitioner Family; Visit Provider Nurse Practitioner Family | DX: T81.31XS Disruption of external operation (surgical) wound, not elsewhere classified, sequela (principal); X58.XXXS Exposure to other specified factors, sequela | CPT/HCPCS: 97110; 97140 ==

== ENCOUNTER 2021-01-17 08:03 | Outpatient (CLI) | payer MEDICAID, SELFPAY | END 2021-01-17 08:04 | disposition home or self-care (01) | LOC: WOUND 08:03 | PROVIDERS: PCP Electrodiagnostic Medicine; Visit Provider Nurse Practitioner Family | DX: T81.31XA Disruption of external operation (surgical) wound, not elsewhere classified, initial encounter (principal); Y83.8 Other surgical procedures as the cause of abnormal reaction of the patient, or of later complication, without mention of misadventure at the time of the procedure | CPT/HCPCS: 87070; 87176; 87205; G0463 ==

== ENCOUNTER 2021-01-24 08:00 | Outpatient (CLI) | payer MEDICAID, SELFPAY | END 2021-01-24 08:01 | disposition home or self-care (01) | LOC: WOUND 08:01 | PROVIDERS: PCP Electrodiagnostic Medicine; Visit Provider Nurse Practitioner Family | DX: Z09 Encounter for follow-up examination after completed treatment for conditions other than malignant neoplasm (principal) | CPT/HCPCS: 99212 ==

== ENCOUNTER 2021-02-07 06:00 | Outpatient (RCR) | payer MEDICAID, SELFPAY | END 2021-03-08 23:59 | disposition home or self-care (01) | LOC: SPT 06:00 | PROVIDERS: PCP Electrodiagnostic Medicine; Referring Provider Nurse Practitioner Family; Visit Provider Nurse Practitioner Family | DX: T81.31XS Disruption of external operation (surgical) wound, not elsewhere classified, sequela (principal) | CPT/HCPCS: 97140 ==

== ENCOUNTER 2021-03-20 08:36 | Outpatient (CLI) | payer MEDICAID, SELFPAY | END 2021-03-20 08:37 | disposition home or self-care (01) | LOC: ONCMED 08:38 | PROVIDERS: PCP Electrodiagnostic Medicine; Visit Provider Internal Medicine Medical Oncology | DX: Z45.2 Encounter for adjustment and management of vascular access device (principal) | CPT/HCPCS: 96523; J1642 ==

== ENCOUNTER 2021-05-09 06:00 | Outpatient (RCR) | payer MEDICAID, SELFPAY | END 2021-06-08 23:59 | disposition home or self-care (01) | LOC: SPT 06:00 | PROVIDERS: PCP Electrodiagnostic Medicine; Referring Provider Nurse Practitioner Family; Visit Provider Nurse Practitioner Family | DX: T81.31XS Disruption of external operation (surgical) wound, not elsewhere classified, sequela (principal) | CPT/HCPCS: 97140 ==

== ENCOUNTER 2021-05-20 03:43 | Emergency (ER) | payer MEDICAID, SELFPAY ==
[2021-05-20 04:00] VITALS: BP 127/70; PULSE 50; RESP 22; TEMP 36.7; O2SAT 97; BMI 37.4
[2021-05-20] MEDS: sodium chloride 0.9% 1,000 ML 999 ML IV (04:39)
--- NOTE | 2021-05-20 04:43 | CTR_ITS ---
PROCEDURE INFORMATION: Exam: CT Abdomen And Pelvis With Contrast Exam date and time: 05/20/2021 4:43 AM Age: 40 years old Clinical indication: Abdominal pain; Prior surgery; Additional info: Upper abd pain TECHNIQUE: Imaging protocol: Computed tomography of the abdomen and pelvis with contrast. Radiation optimization: All CT scans at this facility use at least one of these dose optimization techniques: automated exposure control; mA and/or kV adjustment per patient size (includes targeted exams where dose is matched to clinical indication); or iterative reconstruction. Contrast material: OMNI 300; Contrast volume: 95 ml; Contrast route: INTRAVENOUS (IV); COMPARISON: CT abdomen pelvis w con* [id number] 10/19/2018 11:44 AM RADIATION DOSE METRICS: Total DLP (mGy-cm): 1766.12 FINDINGS: Liver: Normal. No mass. Gallbladder and bile ducts: There is hyperdense material seen in the dependent portion of the gallbladder compatible with tiny gallstones or gallbladder sludge. There are no inflammatory changes seen to suggest cholecystitis. Pancreas: Normal. No ductal dilation. Spleen: Normal. No splenomegaly. Adrenal glands: Normal. No mass. Kidneys and ureters: Normal. No hydronephrosis. Stomach and bowel: Status post gastric sleeve procedure. Appendix: No evidence of appendicitis. Intraperitoneal space: Unremarkable. No free air. No significant fluid collection. Vasculature: Unremarkable. No abdominal aortic aneurysm. Lymph nodes: Unremarkable. No enlarged lymph nodes. Urinary bladder: Unremarkable as visualized. Reproductive: Unremarkable as visualized. Bones/joints: Unremarkable. No acute fracture. Soft tissues: Unremarkable. CT/CT abdomen pelvis w con* [id number] IMPRESSION: Hyperdense material seen in the gallbladder lumen likely represents gallbladder sludge versus tiny gallstones. Radiation Dose CTDIVOL = (mGy): DLP = 1766.12 (mGy-cm)
[2021-05-20 04:48] VITALS: RESP 20
[2021-05-20] MEDS: morphine 4 mg/mL SDV 1 mL IVP ×2 (04:48→07:32)
[2021-05-20] MEDS: ondansetron 2 mg/ML SDV 2 mL 4 MG IVP (04:49)
--- NOTE | 2021-05-20 04:51 | PC.NURSE ---
pt port accessed. pt tolerated well.
[2021-05-20 04:55] LABS: Basophils % 0.5 %; Eosinophils # 0.1 10^3/uL (0.0-0.8); Eosinophils % 1.1 %; Hematocrit 38.2 % (37.0-47.0); Hemoglobin 12.6 g/dL (11.5-15.3); Lymphocytes % 21.9 %; Mean Corpuscular Hemoglobin 32.2 pg (28.0-34.0); Mean Corpuscular Volume 97.7 fL (81-99); Mean Platelet Volume 9.8 fL (7.4-10.4); Monocytes # 0.4 10^3/uL (0.2-0.9); Monocytes % 8.8 %; Neutrophils # 2.97 10^3/uL (1.8-7.7); Neutrophils % 67.2 %; Nucleated Red Blood Cells % 0 %; Platelet Count 191 10^3/cmm (130-400); Red Blood Count 3.91 10^6/uL (4.1-5.3); Red Cell Distribution Width 12.9 % (12.1-15.1); White Blood Count 4.4 10^3/uL (4.0-10.0)
[2021-05-20 05:03] LABS: HCG, Serum Qual Negative (Negative)
[2021-05-20 05:06] LABS: Alanine Aminotransferase 275 U/L (0-33); Albumin Level 3.8 g/dL (3.5-5.2); Alkaline Phosphatase 239 IU/L (35-105); Anion Gap 11.1 (5-19); Aspartate Amino Transferase 572 U/L (0-32); Blood Urea Nitrogen 14 mg/dL (6-20); C Reactive Protein 10.3 mg/L (0.0-4.9); Calcium 9.3 mg/dL (8.5-10.5); Carbon Dioxide 29 mmol/L (22-29); Chloride 104 mmol/L (98-107); Creatine Phosphokinase 53 U/L (26-192); Glomerular Filtration Rate 91.8 mL/min (90-130); Glucose 101 mg/dL (65-115); Lipase 31 U/L (13-60); Osmolality Calculated 291 mOsm/kg (285-295); Potassium 4.1 mmol/L (3.5-5.1); Sodium 140 mmol/L (136-145); Total Bilirubin 1.1 mg/dL (0.15-1.2); Total Protein 6.8 g/dL (6.6-8.7)
[2021-05-20] MEDS: iohexol 300 mg/mL 100 mL Btl IV (06:03)
--- NOTE | 2021-05-20 06:37 | US_ITS ---
WS: [id number] ULTRASOUND ABDOMEN LIMITED CLINICAL INFORMATION: ruq pain COMPARISON: None. FINDINGS: Liver Size: Normal. Craniocaudal length: 13.6 cm. Echogenicity: Normal. Surface nodularity: None. Mass (size and location): None. Bile ducts Intrahepatic ducts: Normal. Common bile duct diameter: 0.4 cm. Gallbladder Cholelithiasis Gallstones: Present Gallbladder sludge: Present Gallbladder wall thickening: None. Pericholecystic fluid: None. Sonographic Patel sign: Absent. Pancreas Normal as visualized. Right kidney: Normal. Hydronephrosis: None. Size: 9.1 cm x 3.6 cm x 3.9 cm. Abdominal aorta and IVC Visualized portions are normal. Ascites: None. US/US gall bladder [id number] IMPRESSION: 1. Normal liver. 2. Cholelithiasis with sludge. Normal common bile duct. No gallbladder wall th ickening or pericholecystic fluid. 3. No hydronephrosis in right kidney.
[2021-05-20 06:39] VITALS: BP 126/80; PULSE 53; RESP 18; O2SAT 98
[2021-05-20] MEDS: lidocaine 2% viscous 15 ML, aluminum-mag hydrox-simethicon 30 ML, sucralfate oral liq 1 GM PO (07:31)
[2021-05-20 07:32] VITALS: RESP 16
[2021-05-20 07:40] VITALS: BP 120/76; PULSE 52; RESP 16; O2SAT 100
[2021-05-20 07:46] LABS: Add Urine Culture? Yes; Add Urine Microscopic? YES; Bacteria Urine 2+ /hpf; Bilirubin Urine 1+ (Negative); Blood Urine Neg (Negative); Glucose Urine UA Norm (Normal); Ketones Urine Negative (Negative); Leukocyte Esterase Urine 1+ (Negative); Nitrate Urine Negative (Negative); Protein Urine Neg (Negative); Specific Gravity, Urine 1.015 (1.005-1.030); Squamous Epithelial Cell Urine 0-4 /hpf (0-5); Urine Appearance Clear (CLEAR); Urine Color Dark Yellow (Yellow); Urobilinogen Urine 8 mg/dL (Negative); pH Urine 5 (5-7)
--- NOTE | 2021-05-20 09:12 | ED_ITS ---
HPI - Abdominal Pain General: Chief Complaint: Abdominal Pain Stated Complaint: upper abd pain Time Seen by Provider: 05/20/21 05:04 History of Present Illness: HPI narrative: 40-year-old female complaining of 2 to 3 days of intermittent epigastric pain. She notes nausea as well. She has not had pain like this in the past. She has had multiple belly surgeries in the past. She has taken some antacids at home without relief. She denies any fever. Associated Symptoms: Reports heartburn and nausea; Denies dysuria and fever(s) Review of Systems Const: Denies: fever(s) Card: Denies: chest pain Resp: Denies: dyspnea or productive cough GI: Reports: abdominal pain, nausea and heartburn : Denies: dysuria Musc: Denies: neck pain Skin/Breast: Denies: rash Neuro: Denies: dizziness PFSH ED PFSH: Medical History (Updated 05/20/21 @ 07:52 by Billy Chairez DO) Menopause ovarian failure She was counseled regarding FSH level was suggesting ovarian failure due to radiation therapy her for vaginal malignancy. He was encouraged to continue use Osphena for her dyspareunia. Follow-up in one month. Mucinous adenocarcinoma Incidental finding at the time of excision of posterior vaginal wall cyst performed on 10/12/2018. Patient being evaluated by general surgery. Patient has also been referred to [facility] in [place] by Dr. Hardin. She was counseled regarding the pathology report of mucinous adenocarcinoma. She recently had a PET scan that was negative. She was informed by general surgeon that PET scan was negative and she is concern. 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 Pseudomyxoma peritonei develops at a variable rate, but may grow at a slower rate (indolent) than other malignancies within the abdomen which can explain the negative PET scan and incidental finding in the rectovaginal biopsy. If this is in fact pseudomyxoma peritonei the patient will be better served by referring her to a center with experience with this rare disease of approximately 2 cases per million individuals. I recommended the patient be referred to [facility] surgical oncology department with Dr. Wei Gonzalez who is nationally recognized expert in treating Mucinous adenocarcinomas. 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 This is a commonly observed side effect of such treatment. Her vaginal stenosis can be graded to grade 2, meaning vaginal narrowing and shortening interfering with sexual function. She was counseled regarding all treatment modalities include irregular nonnarcotic pain medication, intermittent hormonal cream, vaginal dilatation, and use of artificial lubrication. She referred she was advised not to use any hormones. Would consider treating with Osphena since is not hormonal treatment, but she was advised to continue with vaginal dilation stretch the vaginal mucosa breakdown adhesions to maintain vaginal patency. time 30 min Surgical History History of appendectomy History of dilation and curettage History of gastric surgery History of radial keratotomy History of repair of anterior cruciate ligament of left knee S/P laser cataract surgery Status post surgery (~10/12/18) Excision of vaginal wall cyst--Performed by Dr. Douglas Chase at [facility] in [place], [place]. Final pathology showed mucinous adenocarcinoma. Family History Grandmother Heart disease Paternal Lupus Paternal Diabetes Paternal Hypertension Paternal Unknown Patient denies medical problems Denies family history of: stroke, hypercholesterolemia, thryoid problems, breast cancer, ovarian cancer, uterine cancer,or colon cancer Social History (Updated 03/20/20 @ 13:56 by Lily Latif RN) Smoking and tobacco status: never smoked Alcohol intake: current Alcohol intake frequency: holidays/special occasions only Physical Exam Const: GENERAL APPEARANCE: cooperative and ill appearing HENMT: COMMON NORMALS: normocephalic HEAD & SCALP: normocephalic Neck/C-Spine: COMMON NORMALS: no JVD Chest: COMMONS NORMALS: normal inspection of the chest Resp: COMMON NORMALS: normal respiratory effort, No use of accessory muscles and percussion normal PERCUSSION: percussion normal Cardio: COMMON NORMALS: no JVD, regular rate and regular rhythm RATE: regular rate RHYTHM: regular rhythm GI: COMMON NORMALS: Normal to inspection, nondistended, normoactive bowel sounds present and Soft to palpation PALPATION: Yes Soft to palpation and Yes Tenderness to palpation present (GI) (epigastric) Details: RUQ Extremity: COMMON NORMALS: normal to inspection Neuro: CYNTHIA COMA SCALE: document GCS findings [place] coma scale eye opening: Spontaneous Cynthia coma scale verbal response: Orientated Cynthia coma scale motor response: Obey commands Cynthia coma scale total score: 15 Skin: COMMON NORMALS: no rashes or lesions noted GENERAL SKIN EXAM: no rashes or lesions noted Course Vital Signs: Vital signs: Vital Signs Temperature 98.1 F 05/20/21 04:00 Pulse Rate 52 L 05/20/21 07:40 Respiratory Rate 16 05/20/21 07:40 Blood Pressure 120/76 05/20/21 07:40 Pulse Oximetry 100 05/20/21 07:40 MDM - Abdominal Pain MDM Narrative: Medical decision making narrative: 40-year-old female with epigastric/right upper quadrant pain. CT shows sludge in the gallbladder. Ultrasound shows sludge with tiny stones. There is no gallbladder wall thickening. No ductal dilatation. White blood cell count is 4.4. Electrolytes are normal. She will be referred to surgery as an outpatient, treated with PPI. Lab Data: Labs: Lab Results 05/20/21 05/20/21 05/20/21 Range/Units 04:35 04:35 04:35 WBC 4.4 (4.0-10.0) 10^3/ uL RBC 3.91 L (4.1-5.3) 10^6/u L Hgb 12.6 (11.5-15.3) g/dL Hct 38.2 (37.0-47.0) % MCV 97.7 (81-99) fL MCH 32.2 (28.0-34.0) pg MCHC 33.0 (30.0-36.0) g/dL RDW 12.9 (12.1-15.1) % Plt Count 191 (130-400) 10^3/c mm MPV 9.8 (7.4-10.4) fL Neut % (Auto) 67.2 % Lymph % (Auto) 21.9 % [place] % (Auto) 8.8 % Eos % (Auto) 1.1 % Baso % (Auto) 0.5 % Neut # (Auto) 2.97 (1.8-7.7) 10^3/u L Lymph # (Auto) 1.0 (0.8-4.8) 10^3/u L [place] # (Auto) 0.4 (0.2-0.9) 10^3/u L Eos # (Auto) 0.1 (0.0-0.8) 10^3/u L Baso # (Auto) 0.0 (0.0-0.1) 10^3/u L Nucleated RBC % (a uto) 0 % Nucleated RBCs # 0.0 /100WBC Sodium 140 (136-145) mmol/L Potassium 4.1 (3.5-5.1) mmol/L Chloride 104 (98-107) mmol/L Carbon Dioxide 29 (22-29) mmol/L Anion Gap 11.1 (5-19) BUN 14 (6-20) mg/dL Creatinine 0.7 (0.5-0.9) mg/dL GFR Calculation 91.8 (90-130) mL/min Glucose 101 (65-115) mg/dL Calculated Osmolal ity 291 (285-295) mOsm/k g Calcium 9.3 (8.5-10.5) mg/dL Total Bilirubin 1.1 (0.15-1.2) mg/dL AST 572 H (0-32) U/L ALT 275 H (0-33) U/L Alkaline Phosphata se 239 H (35-105) IU/L Creatine Kinase 53 (26-192) U/L C-Reactive Protein 10.3 H (0.0-4.9) mg/L Total Protein 6.8 (6.6-8.7) g/dL Albumin 3.8 (3.5-5.2) g/dL Globulin 3.0 (1.3-4.6) g/dL Lipase 31 (13-60) U/L HCG, Qual Negative (Negative) Urine Color (Yellow) Urine Appearance (CLEAR) Urine pH (5-7) Ur Specific Gravit y (1.005-1.030) Urine Protein (Negative) Urine Glucose (UA) (Normal) Urine Ketones (Negative) Urine Blood (Negative) Urine Nitrate (Negative) Urine Bilirubin (Negative) Urine Urobilinogen (Negative) mg/dL Ur Leukocyte Danielle ase (Negative) Urine RBC (0-2) /hpf Urine WBC (0-5) /hpf Ur Squamous Epith Cells (0-5) /hpf Amorphous Sediment Urine Bacteria (NONE) /hpf 05/20/21 Range/Units 07:15 WBC (4.0-10.0) 10^3/ uL RBC (4.1-5.3) 10^6/u L Hgb (11.5-15.3) g/dL Hct (37.0-47.0) % MCV (81-99) fL MCH (28.0-34.0) pg MCHC (30.0-36.0) g/dL RDW (12.1-15.1) % Plt Count (130-400) 10^3/c mm MPV (7.4-10.4) fL Neut % (Auto) % Lymph % (Auto) % [place] % (Auto) % Eos % (Auto) % Baso % (Auto) % Neut # (Auto) (1.8-7.7) 10^3/u L Lymph # (Auto) (0.8-4.8) 10^3/u L [place] # (Auto) (0.2-0.9) 10^3/u L Eos # (Auto) (0.0-0.8) 10^3/u L Baso # (Auto) (0.0-0.1) 10^3/u L Nucleated RBC % (a uto) % Nucleated RBCs # /100WBC Sodium (136-145) mmol/L Potassium (3.5-5.1) mmol/L Chloride (98-107) mmol/L Carbon Dioxide (22-29) mmol/L Anion Gap (5-19) BUN (6-20) mg/dL Creatinine (0.5-0.9) mg/dL GFR Calculation (90-130) mL/min Glucose (65-115) mg/dL Calculated Osmolal ity (285-295) mOsm/k g Calcium (8.5-10.5) mg/dL Total Bilirubin (0.15-1.2) mg/dL AST (0-32) U/L ALT (0-33) U/L Alkaline Phosphata se (35-105) IU/L Creatine Kinase (26-192) U/L C-Reactive Protein (0.0-4.9) mg/L Total Protein (6.6-8.7) g/dL Albumin (3.5-5.2) g/dL Globulin (1.3-4.6) g/dL Lipase (13-60) U/L HCG, Qual (Negative) Urine Color Dark yellow (Yellow) Urine Appearance Clear (CLEAR) Urine pH 5 (5-7) Ur Specific Gravit y 1.015 (1.005-1.030) Urine Protein Neg (Negative) Urine Glucose (UA) Norm (Normal) Urine Ketones Negative (Negative) Urine Blood Neg (Negative) Urine Nitrate Negative (Negative) Urine Bilirubin 1+ H (Negative) Urine Urobilinogen 8 H (Negative) mg/dL Ur Leukocyte Danielle ase 1+ H (Negative) Urine RBC None (0-2) /hpf Urine WBC 5-10 H (0-5) /hpf Ur Squamous Epith Cells 0-4 H (0-5) /hpf Amorphous Sediment Not Reportable Urine Bacteria 2+ H (NONE) /hpf Discharge Plan Discharge Patient Disposition: Home Clinical Impression: Biliary colic Gastritis Qualifiers: Gastritis type: superficial Chronicity: acute Gastritis bleeding: without bleeding Qualified Code(s): K29.00 - Acute gastritis without bleeding Condition: Stable Prescriptions: New hydrocodone-acetaminophen 5-325 mg tablet 1 tab PO Q8H PRN (Reason: pain) Qty: 7 RF: 0 Zofran 4 mg tablet 4 mg PO Q6H PRN (Reason: nausea and vomiting) Qty: 10 RF: 0 Prevacid 30 mg capsule,delayed release(DR/EC) 30 mg PO DAILY Qty: 30 RF: 0 Discharge Orders: Discharge ED (Routine); Ordered 05/20/21 Ordered By: Billy Chairez Referrals: Kedar Guo DO [Primary Care Provider] - 1-3 days Patient Instructions: Abdominal Pain (ED), Opioid Safety Activity Restrictions/Additional Instructions: Medication as directed. Return for fever greater than 100, worsening pain despite treatment, vomiting liquids or medications, any other concerning symptoms. Case management referral has been made for an appointment with surgery. You should hear from them the beginning of this week. Coding Level of Care Code ED Manager Management for [facility]
--- NOTE | 2021-05-20 10:45 | DCPLANNER ---
manager production had message to schedule a follow up appointment for patient with general surgery for biliary colic. manager production emailed patients information to both Zara and Emilie at [facility] General Surgery. Patients information will be printed and reviewed. Clinic will call patient with appointment information.
--- NOTE | 2021-05-21 13:22 | DCPLANNER ---
Patient has a follow up appointment scheduled for Thursday, May 29, 2021 at 11:[address] Bejarano. support manager called patient and informed patient of the scheduled appointment.
--- NOTE | 2021-06-27 11:20 | DCPLANNER ---
Patient had an appointment scheduled with Dr. Bejarano - appointment was cancelled.
== END 2021-05-20 08:56 | disposition home or self-care (01) ==
PROVIDERS: Emergency Provider Emergency Medicine; PCP Electrodiagnostic Medicine
DX: K29.00 Acute gastritis without bleeding (principal); K80.50 Calculus of bile duct without cholangitis or cholecystitis without obstruction
CPT/HCPCS: 74177; 76705; 80053; 81001; 82550; 83690; 84703; 85025; 86140; 87086; 96374; 99284; J1642; J2270; J2405; J7030; Q9967

== ENCOUNTER 2021-05-26 13:03 | Emergency (ER) | payer MEDICAID, SELFPAY ==
[2021-05-26 13:08] VITALS: BP 161/79; PULSE 115; RESP 19; TEMP 36.6; O2SAT 96; BMI 37.4
--- NOTE | 2021-05-26 14:40 | ED_ITS ---
Documented by User: Douglas Townsend MD 05/26/21 17:19 HPI - Abdominal Pain General: Chief Complaint: Abdominal Pain Stated Complaint: LOWER ABD PAIN Time Seen by Provider: 05/26/21 14:34 History of Present Illness: HPI narrative: This patient is a 40-year-old female who presents to the emergency department complaint abdominal pain in the midepigastrium and right upper quadrant. Patient states she was seen 1 week ago for the same was told she had gallbladder issues with gallstones and sludge. This is consistent with her ultrasound. Patient has not followed up with general surgery yet. Patient states pain is becoming unrelenting. Patient is states anything she takes p.o. causes significant amount of pain. Patient ate breakfast at [employer]? this morning. States pain is unrelenting. Will do medical evaluation treat as needed. Patient denies vomiting. MD elicited complaint: abdominal pain Associated Symptoms: Reports nausea; Denies chills, dysuria, fever(s) and vomiting Review of Systems General: Reports: 10 or more systems reviewed and unremarkable except in HPI and below Const: Denies: fever(s), chills, body aches or fatigue Eyes: Denies: change in vision or blurry vision ENMT: Denies: throat pain, hoarseness or mouth pain Card: Denies: chest pain, palpitations, irregular heart rhythm, edema, swelling of feet/ankles or lightheadedness Resp: Denies: dyspnea, productive cough, non-productive cough, wheezing or pain on inspiration GI: Reports: abdominal pain and nausea; Denies: vomiting : Denies: flank pain, difficulty voiding, dysuria, urinary frequency, urinary urgency or urinary hesitancy Musc: Denies: neck pain, back pain, extremity pain, extremity swelling, joint pain, joint swelling, joint redness, joint warmth or limited range of motion Skin/Breast: Denies: rash, pruritus, erythema or skin tenderness Neuro: Denies: headache(s), numbness in extremities or weakness in extremities Psych: Denies: anxiety or depression PFSH ED PFSH: Medical History Menopause ovarian failure She was counseled regarding FSH level was suggesting ovarian failure due to radiation therapy her for vaginal malignancy. He was encouraged to continue use Osphena for her dyspareunia. Follow-up in one month. Mucinous adenocarcinoma Incidental finding at the time of excision of posterior vaginal wall cyst performed on 10/12/2018. Patient being evaluated by general surgery. Patient has also been referred to [facility] in [place] by Dr. Hardin. She was counseled regarding the pathology report of mucinous adenocarcinoma. She recently had a PET scan that was negative. She was informed by general surgeon that PET scan was negative and she is concern. 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 Pseudomyxoma peritonei develops at a variable rate, but may grow at a slower rate (indolent) than other malignancies within the abdomen which can explain the negative PET scan and incidental finding in the rectovaginal biopsy. If this is in fact pseudomyxoma peritonei the patient will be better served by referring her to a center with experience with this rare disease of approximately 2 cases per million individuals. I recommended the patient be referred to [facility] surgical oncology department with Dr. Wei Gonzalez who is nationally recognized expert in treating Mucinous adenocarcinomas. 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 This is a commonly observed side effect of such treatment. Her vaginal stenosis can be graded to grade 2, meaning vaginal narrowing and shortening interfering with sexual function. She was counseled regarding all treatment modalities include irregular nonnarcotic pain medication, intermittent hormonal cream, vaginal dilatation, and use of artificial lubrication. She referred she was advised not to use any hormones. Would consider treating with Osphena since is not hormonal treatment, but she was advised to continue with vaginal dilation stretch the vaginal mucosa breakdown adhesions to maintain vaginal patency. time 30 min Surgical History History of appendectomy History of dilation and curettage History of gastric surgery History of radial keratotomy History of repair of anterior cruciate ligament of left knee S/P laser cataract surgery Status post surgery (~10/12/18) Excision of vaginal wall cyst--Performed by Dr. Douglas Chase at [facility] in [place], [place]. Final pathology showed mucinous adenocarcinoma. Family History Grandmother Heart disease Paternal Lupus Paternal Diabetes Paternal Hypertension Paternal Unknown Patient denies medical problems Denies family history of: stroke, hypercholesterolemia, thryoid problems, breast cancer, ovarian cancer, uterine cancer,or colon cancer Social History Smoking and tobacco status: never smoked Alcohol intake: current Alcohol intake frequency: holidays/special occasions only Physical Exam Const: COMMON NORMALS: no acute distress, average body habitus, patient or iented x3, no limitations, healthy appearing, alert and well nourished HENMT: COMMON NORMALS: normocephalic, atraumatic, hearing grossly normal bi laterally, external ears normal, EAC's normal, TM's normal bilaterally, Normal external nose present, Normal nasal mucous membranes and turbinates present, moist oral mucous membranes, oropharynx normal, dentition normal and gingiva normal HEAD & SCALP: normocephalic and atraumatic NOSE: Normal external nose present and Normal nasal mucous membranes and turbinates present EXTERNAL EAR: Yes external ears normal EXTERNAL AUDITORY CANAL: EAC's normal TYMPANIC MEMBRANE: TM's normal bilaterally Neck/C-Spine: COMMON NORMALS: full ROM, no lymphadenopathy, supple, no meningeal signs, no JVD, Thyroid normal and No carotid bruits THYROID: Thyroid normal Chest: COMMONS NORMALS: normal inspection of the chest, normal palpation of entire chest wall, normal inspection of the breasts and normal palpation of the breasts Breast/axilla inspection: Yes normal inspection of the breasts BREAST/AXILLA PALPATION: Yes normal palpation of the breasts Resp: COMMON NORMALS: normal respiratory effort, No retractions, No use of accessory muscles, clear to auscultation bilaterally and percussion normal AUSCULTATION: clear to auscultation bilaterally PERCUSSION: percussion normal Cardio: COMMON NORMALS: no JVD, regular rate, regular rhythm, S1 normal heart sound present, S2 normal heart sound present, No gallops present (Cardio), No clicks present (Cardio), No murmurs present (Cardio), No rub (Cardio) and Peripheral pulses 2+ throughout RATE: regular rate RHYTHM: regular rhythm HEART SOUNDS: S1 normal heart sound present and S2 normal heart sound present PERIPHERAL PULSES: Peripheral pulses 2+ throughout GI: COMMON NORMALS: Normal to inspection, nondistended, normoactive bowel sounds present, Soft to palpation, non-tender, No hepatosplenomegaly present, no masses and no bruits PALPATION: Yes Soft to palpation and Yes No hepatosplenomegaly present Back/Pelvis: COMMON NORMALS: thoracic and lumbar spine normal to inspection, no thoracic nor lumbar tenderness, thoraco-lumbar ROM normal and straight leg raise negative bilaterally Extremity: COMMON NORMALS: normal to inspection, full ROM, capillary refill normal, no joint enlargement, no clubbing, cyanosis or edema, no calf tenderness and no pedal edema Neuro: COMMON NORMALS: patient oriented x3 SENSORIUM/ORIENTATION: Yes alert MENINGEAL SIGNS: Yes no meningeal signs Course Reevaluation(s): Reevaluation #1: Patient much improved after IV morphine. No complaints at this time remains n.p.o. Time: 17:17 Consultations: Consultation #1: I did discuss at length with Dr. Bright general surgery. We reviewed patient's chart. He request the patient have a repeat gallbladder ultrasound and possibly MRCP depending on what the ultrasound says. And advised follow-up as needed. Time: 17:18 Consultation #2: Care will be transferred to Dr. Chairez for shift change Time: 17:18 Vital Signs: Vital signs: Vital Signs Temperature 98.1 F 05/26/21 21:12 Pulse Rate 57 L 05/26/21 21:12 Respiratory Rate 16 05/26/21 21:12 Blood Pressure 106/59 05/26/21 21:12 Pulse Oximetry 97 05/26/21 21:12 MDM - Abdominal Pain Lab Data: Labs: Lab Results 05/26/21 05/26/21 05/26/21 Range/Units 15:47 15:47 15:47 WBC 5.4 (4.0-10.0) 10^3/ uL RBC 3.93 L (4.1-5.3) 10^6/u L Hgb 13.1 (11.5-15.3) g/dL Hct 38.9 (37.0-47.0) % MCV 99.0 (81-99) fL MCH 33.3 (28.0-34.0) pg MCHC 33.7 (30.0-36.0) g/dL RDW 13.0 (12.1-15.1) % Plt Count 199 (130-400) 10^3/c mm MPV 9.5 (7.4-10.4) fL Neut % (Auto) 62.8 % Lymph % (Auto) 21.9 % Ness % (Auto) 13.4 % Eos % (Auto) 1.1 % Baso % (Auto) 0.4 % Neut # (Auto) 3.38 (1.8-7.7) 10^3/u L Lymph # (Auto) 1.2 (0.8-4.8) 10^3/u L Ness # (Auto) 0.7 (0.2-0.9) 10^3/u L Eos # (Auto) 0.1 (0.0-0.8) 10^3/u L Baso # (Auto) 0.0 (0.0-0.1) 10^3/u L Nucleated RBC % (a uto) 0 % Nucleated RBCs # 0.0 /100WBC Sodium 139 (136-145) mmol/L Potassium 4.1 (3.5-5.1) mmol/L Chloride 102 (98-107) mmol/L Carbon Dioxide 27 (22-29) mmol/L Anion Gap 14.1 (5-19) BUN 12 (6-20) mg/dL Creatinine 0.7 (0.5-0.9) mg/dL GFR Calculation 91.8 (90-130) mL/min Glucose 96 (65-115) mg/dL Calculated Osmolal ity 288 (285-295) mOsm/k g Calcium 8.8 (8.5-10.5) mg/dL Total Bilirubin 2.1 H (0.15-1.2) mg/dL AST 206 H (0-32) U/L ALT 178 H (0-33) U/L Alkaline Phosphata se 726 H (35-105) IU/L Total Protein 7.2 (6.6-8.7) g/dL Albumin 4.2 (3.5-5.2) g/dL Globulin 3.0 (1.3-4.6) g/dL Lipase 25 (13-60) U/L HCG, Qual Negative (Negative) SARS-CoV-2 Ag (Rap id) (Negative) 05/26/21 05/26/21 Range/Units 18:14 19:55 WBC (4.0-10.0) 10^3/ uL RBC (4.1-5.3) 10^6/u L Hgb (11.5-15.3) g/dL Hct (37.0-47.0) % MCV (81-99) fL MCH (28.0-34.0) pg MCHC (30.0-36.0) g/dL RDW (12.1-15.1) % Plt Count (130-400) 10^3/c mm MPV (7.4-10.4) fL Neut % (Auto) % Lymph % (Auto) % Ness % (Auto) % Eos % (Auto) % Baso % (Auto) % Neut # (Auto) (1.8-7.7) 10^3/u L Lymph # (Auto) (0.8-4.8) 10^3/u L Ness # (Auto) (0.2-0.9) 10^3/u L Eos # (Auto) (0.0-0.8) 10^3/u L Baso # (Auto) (0.0-0.1) 10^3/u L Nucleated RBC % (a uto) % Nucleated RBCs # /100WBC Sodium (136-145) mmol/L Potassium (3.5-5.1) mmol/L Chloride (98-107) mmol/L Carbon Dioxide (22-29) mmol/L Anion Gap (5-19) BUN (6-20) mg/dL Creatinine (0.5-0.9) mg/dL GFR Calculation (90-130) mL/min Glucose (65-115) mg/dL Calculated Osmolal ity (285-295) mOsm/k g Calcium (8.5-10.5) mg/dL Total Bilirubin (0.15-1.2) mg/dL AST (0-32) U/L ALT (0-33) U/L Alkaline Phosphata se (35-105) IU/L Total Protein (6.6-8.7) g/dL Albumin (3.5-5.2) g/dL Globulin (1.3-4.6) g/dL Lipase (13-60) U/L HCG, Qual Negative (Negative) SARS-CoV-2 Ag (Rap id) Negative (Negative) Discharge Plan Discharge Patient Disposition: Xfer Short-Term Hosp Clinical Impression: Right upper quadrant abdominal pain, Cholelithiasis with choledocholithiasis Condition: Stable Referrals: Kedar Guo DO [Primary Care Provider] - Activity Restrictions/Additional Instructions: Go from here directly to [facility] in [facility]. Your bed number will be provided to you on discharge from the ER. Please do not eat. You may drink clear liquids until midnight. When you arrive, tell the medical staff, that you are presenting for direct admission. Give them your name and bed information. Coding Level of Care Code ED Driver Helper for Chg Fwd Exam Comprehensive Documented by User: Billy Chairez DO 05/26/21 21:45 HPI - Abdominal Pain General: Chief Complaint: Abdominal Pain Stated Complaint: LOWER ABD PAIN Time Seen by Provider: 05/26/21 14:34 PFSH ED PFSH: Medical History Menopause ovarian failure She was counseled regarding FSH level was suggesting ovarian failure due to radiation therapy her for vaginal malignancy. He was encouraged to continue use Osphena for her dyspareunia. Follow-up in one month. Mucinous adenocarcinoma Incidental finding at the time of excision of posterior vaginal wall cyst performed on 10/12/2018. Patient being evaluated by general surgery. Patient has also been referred to [facility] in [place] by Dr. Hardin. She was counseled regarding the pathology report of mucinous adenocarcinoma. She recently had a PET scan that was negative. She was informed by general surgeon that PET scan was negative and she is concern. 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 Pseudomyxoma peritonei develops at a variable rate, but may grow at a slower rate (indolent) than other malignancies within the abdomen which can explain the negative PET scan and incidental finding in the rectovaginal biopsy. If this is in fact pseudomyxoma peritonei the patient will be better served by referring her to a center with experience with this rare disease of approximately 2 cases per million individuals. I [facility] with Dr. Wei Gonzalez who is nationally recognized expert in treating Mucinous adenocarcinomas. 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 This is a commonly observed side effect of such treatment. Her vaginal stenosis can be graded to grade 2, meaning vaginal narrowing and shortening interfering with sexual function. She was counseled regarding all treatment modalities include irregular nonnarcotic pain medication, intermittent hormonal cream, vaginal dilatation, and use of artificial lubrication. She referred she was advised not to use any hormones. Would consider treating with Osphena since is not hormonal treatment, but she was advised to continue with vaginal dilation stretch the vaginal mucosa breakdown adhesions to maintain vaginal patency. time 30 min Surgical History History of appendectomy History of dilation and curettage History of gastric surgery History of radial keratotomy History of repair of anterior cruciate ligament of left knee S/P laser cataract surgery Status post surgery (~10/12/18) Excision of vaginal wall cyst--Performed by Dr. Douglas Chase at [facility] in [place], [place]. Final pathology showed mucinous adenocarcinoma. Family History Grandmother Heart disease Paternal Lupus Paternal Diabetes Paternal Hypertension Paternal Unknown Patient denies medical problems Denies family history of: stroke, hypercholesterolemia, thryoid problems, breast cancer, ovarian cancer, uterine cancer,or colon cancer Social History Smoking and tobacco status: never smoked Alcohol intake: current Alcohol intake frequency: holidays/special occasions only Course Vital Signs: Vital signs: Vital Signs Temperature 98.1 F 05/26/21 21:12 Pulse Rate 57 L 05/26/21 21:12 Respiratory Rate 16 05/26/21 21:12 Blood Pressure 106/59 05/26/21 21:12 Pulse Oximetry 97 05/26/21 21:12 MDM - Abdominal Pain MDM Narrative: Medical decision making narrative: 40-year-old female with right upper quadrant pain, that continues. Her bilirubin is elevated currently gone up from 1.1-2.1. She has elevations in her liver enzymes as well, and her alkaline phosphatase is significantly elevated. The concern is the need for an ERCP in this patient. Discussed the case with Dr. Zuluaga at [facility]. He is willing to admit her as a direct admit there for ERCP in the morning. We are awaiting a bed number, and transfer arrangements are being made. Remains medically stable with good vitals. Blood pressure 115/71. She remains afebrile. We have obtained a bed from [facility]. The patient would like to go POV. I believe this is appropriate. She is quite clinically stable at this point. We will pull her IV, and let her go by car. Lab Data: Labs: Lab Results 05/26/21 05/26/21 05/26/21 Range/Units 15:47 15:47 15:47 WBC 5.4 (4.0-10.0) 10^3/ uL RBC 3.93 L (4.1-5.3) 10^6/u L Hgb 13.1 (11.5-15.3) g/dL Hct 38.9 (37.0-47.0) % MCV 99.0 (81-99) fL MCH 33.3 (28.0-34.0) pg MCHC 33.7 (30.0-36.0) g/dL RDW 13.0 (12.1-15.1) % Plt Count 199 (130-400) 10^3/c mm MPV 9.5 (7.4-10.4) fL Neut % (Auto) 62.8 % Lymph % (Auto) 21.9 % Ness % (Auto) 13.4 % Eos % (Auto) 1.1 % Baso % (Auto) 0.4 % Neut # (Auto) 3.38 (1.8-7.7) 10^3/u L Lymph # (Auto) 1.2 (0.8-4.8) 10^3/u L Ness # (Auto) 0.7 (0.2-0.9) 10^3/u L Eos # (Auto) 0.1 (0.0-0.8) 10^3/u L Baso # (Auto) 0.0 (0.0-0.1) 10^3/u L Nucleated RBC % (a uto) 0 % Nucleated RBCs # 0.0 /100WBC Sodium 139 (136-145) mmol/L Potassium 4.1 (3.5-5.1) mmol/L Chloride 102 (98-107) mmol/L Carbon Dioxide 27 (22-29) mmol/L Anion Gap 14.1 (5-19) BUN 12 (6-20) mg/dL Creatinine 0.7 (0.5-0.9) mg/dL GFR Calculation 91.8 (90-130) mL/min Glucose 96 (65-115) mg/dL Calculated Osmolal ity 288 (285-295) mOsm/k g Calcium 8.8 (8.5-10.5) mg/dL Total Bilirubin 2.1 H (0.15-1.2) mg/dL AST 206 H (0-32) U/L ALT 178 H (0-33) U/L Alkaline Phosphata se 726 H (35-105) IU/L Total Protein 7.2 (6.6-8.7) g/dL Albumin 4.2 (3.5-5.2) g/dL Globulin 3.0 (1.3-4.6) g/dL Lipase 25 (13-60) U/L HCG, Qual Negative (Negative) SARS-CoV-2 Ag (Rap id) (Negative) 05/26/21 05/26/21 Range/Units 18:14 19:55 WBC (4.0-10.0) 10^3/ uL RBC (4.1-5.3) 10^6/u L Hgb (11.5-15.3) g/dL Hct (37.0-47.0) % MCV (81-99) fL MCH (28.0-34.0) pg MCHC (30.0-36.0) g/dL RDW (12.1-15.1) % Plt Count (130-400) 10^3/c mm MPV (7.4-10.4) fL Neut % (Auto) % Lymph % (Auto) % Ness % (Auto) % Eos % (Auto) % Baso % (Auto) % Neut # (Auto) (1.8-7.7) 10^3/u L Lymph # (Auto) (0.8-4.8) 10^3/u L Ness # (Auto) (0.2-0.9) 10^3/u L Eos # (Auto) (0.0-0.8) 10^3/u L Baso # (Auto) (0.0-0.1) 10^3/u L Nucleated RBC % (a uto) % Nucleated RBCs # /100WBC Sodium (136-145) mmol/L Potassium (3.5-5.1) mmol/L Chloride (98-107) mmol/L Carbon Dioxide (22-29) mmol/L Anion Gap (5-19) BUN (6-20) mg/dL Creatinine (0.5-0.9) mg/dL GFR Calculation (90-130) mL/min Glucose (65-115) mg/dL Calculated Osmolal ity (285-295) mOsm/k g Calcium (8.5-10.5) mg/dL Total Bilirubin (0.15-1.2) mg/dL AST (0-32) U/L ALT (0-33) U/L Alkaline Phosphata se (35-105) IU/L Total Protein (6.6-8.7) g/dL Albumin (3.5-5.2) g/dL Globulin (1.3-4.6) g/dL Lipase (13-60) U/L HCG, Qual Negative (Negative) SARS-CoV-2 Ag (Rap id) Negative (Negative) Discharge Plan Discharge Patient Disposition: Xfer Short-Term Hosp Clinical Impression: Right upper quadrant abdominal pain, Cholelithiasis with choledocholithiasis Condition: Stable Referrals: Kedar Guo DO [Primary Care Provider] - Activity Restrictions/Additional Instructions: Go from here directly to [facility] in [facility]. Your bed number will be provided to you on discharge from the ER. Please do not eat. You may drink clear liquids until midnight. When you arrive, tell the medical staff, that you are presenting for direct admission. Give them your name and bed information. Coding Level of Care Code ED Driver Helper for Chg Fwd Exam Comprehensive
--- NOTE | 2021-05-26 14:55 | PC.NURSE ---
pt arrived to room from waiting area at 1450.
[2021-05-26] MEDS: ondansetron 2 mg/ML SDV 2 mL 4 MG IVP (15:23)
[2021-05-26] MEDS: ketorolac 30 mg/mL INJ 15 MG IVP (15:23)
[2021-05-26] MEDS: pantoprazole 40 mg SDV IVP (15:24)
[2021-05-26] MEDS: sodium chloride 0.9% 1,000 ML 999 ML IV (15:25)
[2021-05-26 15:54] LABS: Basophils % 0.4 %; Eosinophils # 0.1 10^3/uL (0.0-0.8); Eosinophils % 1.1 %; Hematocrit 38.9 % (37.0-47.0); Hemoglobin 13.1 g/dL (11.5-15.3); Lymphocytes # 1.2 10^3/uL (0.8-4.8); Lymphocytes % 21.9 %; Mean Corpuscular HGB Conc 33.7 g/dL (30.0-36.0); Mean Corpuscular Hemoglobin 33.3 pg (28.0-34.0); Mean Platelet Volume 9.5 fL (7.4-10.4); Monocytes # 0.7 10^3/uL (0.2-0.9); Monocytes % 13.4 %; Neutrophils # 3.38 10^3/uL (1.8-7.7); Neutrophils % 62.8 %; Nucleated Red Blood Cells % 0 %; Platelet Count 199 10^3/cmm (130-400); Red Blood Count 3.93 10^6/uL (4.1-5.3); White Blood Count 5.4 10^3/uL (4.0-10.0)
[2021-05-26 16:00] VITALS: BP 129/91; PULSE 64; RESP 15; O2SAT 100
[2021-05-26 16:07] VITALS: RESP 14; O2SAT 97
[2021-05-26] MEDS: morphine 4 mg/mL SDV 1 mL IVP ×2 (16:07→21:24)
[2021-05-26 16:29] LABS: Alanine Aminotransferase 178 U/L (0-33); Albumin Level 4.2 g/dL (3.5-5.2); Alkaline Phosphatase 726 IU/L (35-105); Anion Gap 14.1 (5-19); Aspartate Amino Transferase 206 U/L (0-32); Blood Urea Nitrogen 12 mg/dL (6-20); Calcium 8.8 mg/dL (8.5-10.5); Carbon Dioxide 27 mmol/L (22-29); Chloride 102 mmol/L (98-107); Glomerular Filtration Rate 91.8 mL/min (90-130); Glucose 96 mg/dL (65-115); Lipase 25 U/L (13-60); Osmolality Calculated 288 mOsm/kg (285-295); Potassium 4.1 mmol/L (3.5-5.1); Sodium 139 mmol/L (136-145); Total Bilirubin 2.1 mg/dL (0.15-1.2); Total Protein 7.2 g/dL (6.6-8.7)
[2021-05-26 16:47] LABS: HCG, Serum Qual Negative (Negative)
--- NOTE | 2021-05-26 17:12 | USR_ITS ---
PROCEDURE INFORMATION: Exam: US Abdomen, Limited; Right Upper Quadrant Exam date and time: 05/26/2021 5:12 PM Age: 40 years old Clinical indication: Abdominal pain; Epigastric; Additional info: Abd pain TECHNIQUE: Imaging protocol: US abdomen. Real time ultrasound with image documentation. Limited exam focused on the right upper quadrant. COMPARISON: US gall bladder [id number] 05/20/2021 7:09 AM FINDINGS: Liver: The liver is unremarkable in appearance. Gallbladder: Multiple small shadowing gallstones and mild biliary sludge noted in the dependent portion of the gallbladder. No gallbladder wall thickening. No pericholecystic fluid. Common bile duct: Common duct is mildly dilated. The common duct measures 6.7 mm in diameter. No calculus demonstrated in the common duct. Pancreas: The pancreas is obscured by overlying intestinal gas. Right kidney: Right kidney measures 9.7 cm in length. Normal renal echotexture. No hydronephrosis. No cyst, mass, or calculus demonstrated. Aorta: The aorta is unremarkable as demonstrated. Inferior vena cava: The intrahepatic portion of the inferior vena cava is unremarkable. US/US gall bladder [id number] IMPRESSION: 1. Multiple small shadowing gallstones and mild biliary sludge noted in the dependent portion of the gallbladder. No gallbladder wall thickening. No pericholecystic fluid. 2. Common duct is mildly dilated. The common duct measures 6.7 mm in diameter. No calculus demonstrated in the common duct.
[2021-05-26 18:00] VITALS: RESP 14; O2SAT 97
[2021-05-26 18:34] LABS: HCG Qualitative Urine. Negative (Negative)
[2021-05-26 19:17] VITALS: BP 115/71; PULSE 52; RESP 17; O2SAT 99
[2021-05-26 20:50] LABS: SARS Covid-2 Antigen Negative (Negative)
[2021-05-26 21:12] VITALS: BP 106/59; PULSE 57; RESP 16; TEMP 36.7; O2SAT 97
[2021-05-26 23:49] LABS: Hepatitis A Antibody IgM Non-Reactive (Nonreactive); Hepatitis B Core IgM Non-Reactive (Nonreactive); Hepatitis B Surface Antigen Non-Reactive (Nonreactive); Hepatitis C Virus Antibody Non-Reactive (Nonreactive)
== END 2021-05-26 21:58 | disposition short-term general hospital (02) ==
PROVIDERS: Emergency Medicine; Emergency Provider Emergency Medicine; PCP Electrodiagnostic Medicine
DX: K80.71 Calculus of gallbladder and bile duct without cholecystitis with obstruction (principal); Z20.822 Contact with and (suspected) exposure to COVID-19
CPT/HCPCS: 76705; 80053; 80074; 81025; 83690; 84703; 85025; 87426; 96361; 96374; 96375; 96376; 99285; C9113; J1885; J2270; J2405; J7030

== ENCOUNTER 2021-06-05 21:39 | Emergency (ER) | payer MEDICAID, SELFPAY ==
[2021-06-05 22:43] VITALS: BP 121/74; PULSE 69; RESP 16; TEMP 36.4; O2SAT 97; BMI 37.4
--- NOTE | 2021-06-06 01:00 | W.ED.GENADLT ---
HPI - General Adult General: Chief complaint: General Medical Stated complaint: SURGICAL AREA LEAKING Time Seen by Provider: 06/06/21 00:46 History of Present Illness: HPI narrative: Patient is a 40-year-old female comes to the ED with postsurgical site pain and drainage. Patient had a emergent cholecystectomy about 1 week ago at [facility]. Yesterday patient noticed she was having some drainage from one of the laparoscopic incision sites on central abdomen. The drainage was described as a mix of blood in some possible pus. She says the incision site is also very tender to the touch. Patient has follow-up with her surgeon via telehealth appointment in about a week. Associated symptoms: Deny chest pain, dyspnea, headache(s), nausea, rash, palpitations or vomiting Review of Systems Const: Denies: fever(s), chills or fatigue Eyes: Denies: change in vision or eye discomfort ENMT: Denies: throat pain, odynophagia, nasal discharge or nasal congestion Card: Denies: chest pain, palpitations, edema, swelling of feet/ankles, dyspnea on exertion or orthopnea Resp: Denies: dyspnea, productive cough or non-productive cough GI: Denies: abdominal pain, nausea, vomiting, diarrhea, constipation or hematochezia : Denies: flank pain, dysuria or hematuria Musc: Denies: neck pain, back pain or extremity swelling Skin/Breast: Reports: surgical incision (Pain and drainage around surgical incision site of abdomen.); Denies: rash or new lesions Neuro: Denies: headache(s), numbness in extremities or weakness in extremities PFS ED PFSH: Medical History Menopause ovarian failure She was counseled regarding FSH level was suggesting ovarian failure due to radiation therapy her for vaginal malignancy. He was encouraged to continue use Osphena for her dyspareunia. Follow-up in one month. Mucinous adenocarcinoma Incidental finding at the time of excision of posterior vaginal wall cyst performed on 10/12/2018. Patient being evaluated by general surgery. Patient has also been referred to [facility] [place] [facility] in [place] by Dr. Hardin. She was counseled regarding the pathology report of mucinous adenocarcinoma. She recently had a PET scan that was negative. She was informed by general surgeon that PET scan was negative and she is concern. 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 Pseudomyxoma peritonei develops at a variable rate, but may grow at a slower rate (indolent) than other malignancies within the abdomen which can explain the negative PET scan and incidental finding in the rectovaginal biopsy. If this is in fact pseudomyxoma peritonei the patient will be better served by referring her to a center with experience with this rare disease of approximately 2 cases per million individuals. [facility] Wei Gonzalez who is nationally recognized expert in treating Mucinous adenocarcinomas. 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 This is a commonly observed side effect of such treatment. Her vaginal stenosis can be graded to grade 2, meaning vaginal narrowing and shortening interfering with sexual function. She was counseled regarding all treatment modalities include irregular nonnarcotic pain medication, intermittent hormonal cream, vaginal dilatation, and use of artificial lubrication. She referred she was advised not to use any hormones. Would consider treating with Osphena since is not hormonal treatment, but she was advised to continue with vaginal dilation stretch the vaginal mucosa breakdown adhesions to maintain vaginal patency. time 30 min Surgical History History of appendectomy History of dilation and curettage History of gastric surgery History of radial keratotomy History of repair of anterior cruciate ligament of left knee S/P laser cataract surgery Status post surgery (~10/12/18) Excision of vaginal wall cyst--Performed by Dr. Douglas Chase at [facility] in [place], [place]. Final pathology showed mucinous adenocarcinoma. Family History Grandmother Heart disease Paternal Lupus Paternal Diabetes Paternal Hypertension Paternal Unknown Patient denies medical problems Denies family history of: stroke, hypercholesterolemia, thryoid problems, breast cancer, ovarian cancer, uterine cancer,or colon cancer Social History Smoking and tobacco status: never smoked Alcohol intake: current Alcohol intake frequency: holidays/special occasions only Physical Exam Const: COMMON NORMALS: no acute distress, patient oriented x3, healthy appearing and alert GENERAL APPEARANCE: cooperative and comfortable HENMT: COMMON NORMALS: normocephalic HEAD & SCALP: normocephalic MOUTH: Normal oral and palatal mucosa present THROAT: posterior oropharynx normal and uvula midline Neck/C-Spine: COMMON NORMALS: supple GENERAL: Yes normal visual inspection Resp: COMMON NORMALS: normal respiratory effort, No retractions, No use of accessory muscles and clear to auscultation bilaterally AUSCULTATION: clear to auscultation bilaterally Cardio: COMMON NORMALS: regular rate, regular rhythm, S1 normal heart sound present, S2 normal heart sound present, No gallops present (Cardio), No clicks present (Cardio), No murmurs present (Cardio) and Peripheral pulses 2+ throughout RATE: regular rate RHYTHM: regular rhythm HEART SOUNDS: S1 normal heart sound present and S2 normal heart sound present PERIPHERAL PULSES: Peripheral pulses 2+ throughout GI: COMMON NORMALS: Normal to inspection, nondistended, normoactive bowel sounds present, Soft to palpation, non-tender and no masses INSPECTION: Yes incision Inspection of incision: drainage (Central abdomen-surrounding erythema, tenderness and purulent drainage) PALPATION: Yes Soft to palpation : COMMON NORMALS: Yes no CVA tenderness BLADDER/KIDNEY EXAM: Yes no CVA tenderness Back/Pelvis: COMMON NORMALS: no CVA tenderness Extremity: COMMON NORMALS: normal to inspection Neuro: COMMON NORMALS: patient oriented x3 and moves all extremities SENSORIUM/ORIENTATION: Yes alert Skin: GENERAL SKIN EXAM: dry skin Course Vital Signs: Vital signs: Vital Signs Temperature 97.5 F L 06/05/21 22:43 Pulse Rate 69 06/05/21 22:43 Respiratory Rate 16 06/05/21 22:43 Blood Pressure 121/74 06/05/21 22:43 Pulse Oximetry 97 06/05/21 22:43 MDM - General Adult MDM Narrative: Medical decision making narrative: Patient is a 40-year-old female comes to the ED after 1 week postop for cholecystectomy. She is having some pain and drainage around incision site. Exam shows a healthy-appearing nontoxic 40-year-old female who is a no acute distress. Her central abdomen incision site is showing some signs of cellulitis. CBC and CMP were unremarkable. Patient was given a shot of Rocephin and discharged home. She is diagnosed with postoperative cellulitis of surgical wound and sent home with a prescription for cephalexin. Return to ED precautions given. She was told to follow-up with her surgeon at next scheduled postop appointment. Patient understood agree with plan. Lab Data: Attestation: I reviewed the patient's lab results. Labs: Lab Results 06/06/21 06/06/21 Range/Units 01:45 01:45 WBC 5.8 (4.0-10.0) 10^3/ uL RBC 4.21 (4.1-5.3) 10^6/u L Hgb 13.9 (11.5-15.3) g/dL Hct 42.5 (37.0-47.0) % MCV 101.0 H (81-99) fL MCH 33.0 (28.0-34.0) pg MCHC 32.7 (30.0-36.0) g/dL RDW 12.6 (12.1-15.1) % Plt Count 246 (130-400) 10^3/c mm MPV 9.4 (7.4-10.4) fL Neut % (Auto) 61.8 % Lymph % (Auto) 20.8 % Dewitt % (Auto) 13.9 % Eos % (Auto) 2.1 % Baso % (Auto) 0.7 % Neut # (Auto) 3.60 (1.8-7.7) 10^3/u L Lymph # (Auto) 1.2 (0.8-4.8) 10^3/u L Dewitt # (Auto) 0.8 (0.2-0.9) 10^3/u L Eos # (Auto) 0.1 (0.0-0.8) 10^3/u L Baso # (Auto) 0.0 (0.0-0.1) 10^3/u L Nucleated RBC % (a uto) 0 % Nucleated RBCs # 0.0 /100WBC Sodium 138 (136-145) mmol/L Potassium 4.1 (3.5-5.1) mmol/L Chloride 103 (98-107) mmol/L Carbon Dioxide 27 (22-29) mmol/L Anion Gap 12.1 (5-19) BUN 13 (6-20) mg/dL Creatinine 0.7 (0.5-0.9) mg/dL GFR Calculation 91.8 (90-130) mL/min Glucose 93 (65-115) mg/dL Calculated Osmolal ity 286 (285-295) mOsm/k g Calcium 9.2 (8.5-10.5) mg/dL Total Bilirubin 0.8 (0.15-1.2) mg/dL AST 16 (0-32) U/L ALT 20 (0-33) U/L Alkaline Phosphata se 289 H (35-105) IU/L Total Protein 7.6 (6.6-8.7) g/dL Albumin 4.0 (3.5-5.2) g/dL Globulin 3.6 (1.3-4.6) g/dL Discharge Plan Discharge Patient Disposition: Home Clinical Impression: Postoperative cellulitis of surgical wound Condition: Stable Prescriptions: New cephalexin 500 mg capsule 500 mg PO Q6H 7 Days Qty: 28 RF: 0 No Action hydrocodone-acetaminophen 5-325 mg tablet 1 tab PO Q8H PRN (Reason: pain) Qty: 7 RF: 0 Zofran 4 mg tablet 4 mg PO Q6H PRN (Reason: nausea and vomiting) Qty: 10 RF: 0 Prevacid 30 mg capsule,delayed release(DR/EC) 30 mg PO DAILY Qty: 30 RF: 0 Discharge Orders: Discharge ED (Routine); Ordered 06/06/21 Ordered By: Edwin Brandt Referrals: Kedar Guo, DO [Primary Care Provider] - Discharge Diet: Regular Discharge Activity: Increase activity as tolerated Patient Instructions: Opioid Safety Activity Restrictions/Additional Instructions: Follow-up with medical provider as directed. Call surgeon tomorrow morning to discuss postop symptoms and surgical site cellulitis. Take medications as prescribed. Return to the ER or your medical provider if condition worsens. Please read and understand discharge instructions. Thank you for choosing [facility] for your healthcare needs today. Please realize this is an emergency room and that we are providing you with a medical screening exam and this may not be complete and all inclusive of all the testing and or work up that you may need to determine your ailment or severity of your illness. It is very important that you follow up as instructed or that you return to the Emergency Department should you have concerns or if your condition changes or worsens in any way. Coding Level of Care Code ED Drafter Commercial for Chg Fwd Exam Comprehensive
[2021-06-06] MEDS: HYDROcodone-acetaminophen 5-325 mg Tablet 1 TAB PO (01:41)
[2021-06-06] MEDS: cefTRIAXone 1,000 MG in lidocaine 1% 2.1 ML 2.1 MG IM (01:47)
[2021-06-06 01:56] LABS: Basophils % 0.7 %; Eosinophils # 0.1 10^3/uL (0.0-0.8); Eosinophils % 2.1 %; Hematocrit 42.5 % (37.0-47.0); Hemoglobin 13.9 g/dL (11.5-15.3); Lymphocytes # 1.2 10^3/uL (0.8-4.8); Lymphocytes % 20.8 %; Mean Corpuscular HGB Conc 32.7 g/dL (30.0-36.0); Mean Platelet Volume 9.4 fL (7.4-10.4); Monocytes # 0.8 10^3/uL (0.2-0.9); Monocytes % 13.9 %; Neutrophils % 61.8 %; Nucleated Red Blood Cells % 0 %; Platelet Count 246 10^3/cmm (130-400); Red Blood Count 4.21 10^6/uL (4.1-5.3); Red Cell Distribution Width 12.6 % (12.1-15.1); White Blood Count 5.8 10^3/uL (4.0-10.0)
[2021-06-06 02:20] LABS: Alanine Aminotransferase 20 U/L (0-33); Alkaline Phosphatase 289 IU/L (35-105); Anion Gap 12.1 (5-19); Aspartate Amino Transferase 16 U/L (0-32); Blood Urea Nitrogen 13 mg/dL (6-20); Calcium 9.2 mg/dL (8.5-10.5); Carbon Dioxide 27 mmol/L (22-29); Chloride 103 mmol/L (98-107); Globulin 3.6 g/dL (1.3-4.6); Glomerular Filtration Rate 91.8 mL/min (90-130); Glucose 93 mg/dL (65-115); Osmolality Calculated 286 mOsm/kg (285-295); Potassium 4.1 mmol/L (3.5-5.1); Sodium 138 mmol/L (136-145); Total Bilirubin 0.8 mg/dL (0.15-1.2); Total Protein 7.6 g/dL (6.6-8.7)
== END 2021-06-06 02:28 | disposition home or self-care (01) ==
PROVIDERS: Emergency Medicine; Emergency Provider Physician Assistant; PCP Electrodiagnostic Medicine
DX: L03.311 Cellulitis of abdominal wall (principal); Z90.49 Acquired absence of other specified parts of digestive tract
CPT/HCPCS: 80053; 85025; 96372; 99283; J0696

== ENCOUNTER 2021-06-14 09:33 | Emergency (ER) | payer MEDICAID, SELFPAY ==
[2021-06-14 10:00] VITALS: BP 128/85; PULSE 85; RESP 18; TEMP 37.1; O2SAT 98; BMI 39.1
--- NOTE | 2021-06-14 10:16 | ED_ITS ---
Documented by User: MASOUD Acuña 06/14/21 12:44 HPI - Abdominal Pain General: Chief Complaint: Abdominal Pain Stated Complaint: 2.5 wk post surgery/[facility] S:gallbladder;RUQ abd pain Time Seen by Provider: 06/14/21 09:43 History of Present Illness: HPI narrative: Patient is a 40-year-old female comes to the ED with post op abdominal pain. Patient is approximately 2.5 weeks post op cholecystectomy was performed back on May 29. She was seen here in the ED on June 05 for same complaint and had some developing cellulitis around one of her incision sites and sent home on antibiotic. She is having increased pain in right upper quadrant of abdomen. She rates her pain a 9 out of 10 and says she still has trouble moving around and getting up from a chair out of bed. She denies any nausea, emesis or bowel issues since surgery. She says she has been able to eat and drink and keep things down and does not notice any change in symptoms with food intake. She contacted the [facility] in [place] where surgery was performed and they told her to come have blood work drawn. Associated Symptoms: Denies chills, constipation, diarrhea, dysuria, fever(s), hematochezia, hematuria, nausea and vomiting Review of Systems Const: Denies: fever(s), chills or fatigue Eyes: Denies: change in vision or eye discomfort ENMT: Denies: throat pain, odynophagia, nasal discharge or nasal congestion Card: Denies: chest pain, palpitations, edema, swelling of feet/ankles, dyspnea on exertion or orthopnea Resp: Denies: dyspnea, productive cough or non-productive cough GI: Reports: abdominal pain; Denies: nausea, vomiting, diarrhea, constipation or hematochezia : Denies: flank pain, dysuria or hematuria Musc: Denies: neck pain, back pain or extremity swelling Skin/Breast: Denies: rash or new lesions Neuro: Denies: headache(s), numbness in extremities or weakness in extremities PFSH ED PFSH: Medical History Menopause ovarian failure She was counseled regarding FSH level was suggesting ovarian failure due to radiation therapy her for vaginal malignancy. He was encouraged to continue use Osphena for her dyspareunia. Follow-up in one month. Mucinous adenocarcinoma Incidental finding at the time of excision of posterior vaginal wall cyst performed on 10/12/2018. Patient being evaluated by general surgery. Patient has also been referred to [facility] in [place] by Dr. Hardin. She was counseled regarding the pathology report of mucinous adenocarcinoma. She recently had a PET scan that was negative. She was informed by general surgeon that PET scan was negative and she is concern. 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 Pseudomyxoma peritonei develops at a variable rate, but may grow at a slower rate (indolent) than other malignancies within the abdomen which can explain the negative PET scan and incidental finding in the rectovaginal biopsy. If this is in fact pseudomyxoma peritonei the patient will be better served by referring her to a center with experience with this rare disease of approximately 2 cases per million individuals. I recommended the patient be referred to [facility] surgical oncology department with Dr. Wei Gonzalez who is nationally recognized expert in treating Mucinous adenocarcinomas. 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 This is a commonly observed side effect of such treatment. Her vaginal stenosis can be graded to grade 2, meaning vaginal narrowing and shortening interfering with sexual function. She was counseled regarding all treatment modalities include irregular nonnarcotic pain medication, intermittent hormonal cream, vaginal dilatation, and use of artificial lubrication. She referred she was advised not to use any hormones. Would consider treating with Osphena since is not hormonal treatment, but she was advised to continue with vaginal dilation stretch the vaginal mucosa breakdown adhesions to maintain vaginal patency. time 30 min Surgical History History of appendectomy History of dilation and curettage History of gastric surgery History of radial keratotomy History of repair of anterior cruciate ligament of left knee S/P laser cataract surgery Status post surgery (~10/12/18) Excision of vaginal wall cyst--Performed by Dr. Douglas Chase at [facility] in [place], [place]. Final pathology showed mucinous adenocarcinoma. Family History Grandmother Heart disease Paternal Lupus Paternal Diabetes Paternal Hypertension Paternal Unknown Patient denies medical problems Denies family history of: stroke, hypercholesterolemia, thryoid problems, breast cancer, ovarian cancer, uterine cancer,or colon cancer Social History Smoking and tobacco status: never smoked Alcohol intake: current Alcohol intake frequency: holidays/special occasions only Physical Exam Const: COMMON NORMALS: no acute distress, patient oriented x3 and alert GENERAL APPEARANCE: cooperative and comfortable HENMT: COMMON NORMALS: normocephalic HEAD & SCALP: normocephalic MOUTH: Normal oral and palatal mucosa present THROAT: posterior oropharynx normal and uvula midline Neck/C-Spine: COMMON NORMALS: supple GENERAL: Yes normal visual inspection Resp: COMMON NORMALS: normal respiratory effort, No retractions, No use of accessory muscles and clear to auscultation bilaterally AUSCULTATION: clear to auscultation bilaterally Cardio: COMMON NORMALS: regular rate, regular rhythm, S1 normal heart sound present, S2 normal heart sound present, No gallops present (Cardio), No clicks present (Cardio), No murmurs present (Cardio) and Peripheral pulses 2+ throughout RATE: regular rate RHYTHM: regular rhythm HEART SOUNDS: S1 normal heart sound present and S2 normal heart sound present PERIPHERAL PULSES: Peripheral pulses 2+ throughout GI: COMMON NORMALS: Normal to inspection, nondistended, normoactive bowel sounds present, Soft to palpation and no masses INSPECTION: Yes incision Inspection of incision: healing well and Yes central obesity PALPATION: Yes Soft to palpation and Yes Tenderness to palpation present (GI) Details: RUQ (moderate tenderness to light palpation) OTHER: All of patient's incision sites on abdomen are healing well and there does not appear to be any cellulitis or drainage noted. : COMMON NORMALS: Yes no CVA tenderness BLADDER/KIDNEY EXAM: Yes no CVA tenderness Back/Pelvis: COMMON NORMALS: no CVA tenderness Extremity: COMMON NORMALS: normal to inspection Neuro: COMMON NORMALS: patient oriented x3 SENSORIUM/ORIENTATION: Yes alert GAIT: Yes Normal gait present Skin: GENERAL SKIN EXAM: dry skin Course Vital Signs: Vital signs: Vital Signs Temperature 98.8 F 06/14/21 10:00 Pulse Rate 68 06/14/21 13:42 Respiratory Rate 18 06/14/21 13:42 Blood Pressure 136/78 06/14/21 13:42 Pulse Oximetry 98 06/14/21 13:42 MDM - Abdominal Pain MDM Narrative: Medical decision making narrative: Patient is a 40-year-old female comes to the ED with postop cholecystectomy right upper quadrant abdominal pain. Patient is 2-1/2 weeks postop. She is able to eat and drink normally and denies any nausea, emesis, diarrhea or constipation. Exam showed some tenderness in the right upper quadrant of the abdomen. Patient contacted [facility] in [place], which is a facility that performed the surgery and they told her to get an ultrasound and some labs. Ultrasound was performed and showed no fluid collection or abscess. Bile duct was normal and everything appeared normal post cholecystectomy. I was waiting for patient labs and then handing over patient care to Dorothy Hooks and Dr. Pina. Pending results of lab patient can discharge home. Lab Data: Attestation: I reviewed the patient's lab results. Labs: Lab Results 06/14/21 06/14/21 Range/Units 11:52 11:52 WBC 6.3 (4.0-10.0) 10^3/ uL RBC 4.16 (4.1-5.3) 10^6/u L Hgb 13.5 (11.5-15.3) g/dL Hct 41.5 (37.0-47.0) % MCV 99.8 H (81-99) fL MCH 32.5 (28.0-34.0) pg MCHC 32.5 (30.0-36.0) g/dL RDW 12.2 (12.1-15.1) % Plt Count 216 (130-400) 10^3/c mm MPV 9.5 (7.4-10.4) fL Neut % (Auto) 68.6 % Lymph % (Auto) 17.1 % [place] % (Auto) 11.6 % Eos % (Auto) 1.6 % Baso % (Auto) 0.5 % Neut # (Auto) 4.32 (1.8-7.7) 10^3/u L Lymph # (Auto) 1.1 (0.8-4.8) 10^3/u L [place] # (Auto) 0.7 (0.2-0.9) 10^3/u L Eos # (Auto) 0.1 (0.0-0.8) 10^3/u L Baso # (Auto) 0.0 (0.0-0.1) 10^3/u L Nucleated RBC % (a uto) 0 % Nucleated RBCs # 0.0 /100WBC Sodium 140 (136-145) mmol/L Potassium 3.9 (3.5-5.1) mmol/L Chloride 105 (98-107) mmol/L Carbon Dioxide 26 (22-29) mmol/L Anion Gap 12.9 (5-19) BUN 12 (6-20) mg/dL Creatinine 0.6 (0.5-0.9) mg/dL GFR Calculation 109.6 (90-130) mL/min Glucose 72 (65-115) mg/dL Calculated Osmolal ity 288 (285-295) mOsm/k g Calcium 8.9 (8.5-10.5) mg/dL Total Bilirubin 0.7 (0.15-1.2) mg/dL AST 14 (0-32) U/L ALT 9 (0-33) U/L Alkaline Phosphata se 187 H (35-105) IU/L Total Protein 7.2 (6.6-8.7) g/dL Albumin 3.6 (3.5-5.2) g/dL Globulin 3.6 (1.3-4.6) g/dL Lipase 31 (13-60) U/L Imaging Data ^: US: Attestation: I personally reviewed and interpreted this imaging study as follows: Radiologist's impression: [address] [address] Ultrasound Report Signed Patient: Ghada Alvarez Unit #: [id number] : 1980 Age/Sex: 40 / F ADM Date: 06/14/21 Loc: ER Room/Bed: Attending Dr: Ordering Provider/Ordering MD: Edwin Brandt Date of Service: 06/14/21 Procedure(s): US gall bladder 41999 Accession Number(s): [id number] Report Number: [id number] WS: [id number] RIGHT UPPER QUADRANT ULTRASOUND HISTORY: RUQ pain, 2.5 weeks post op cholecystectomy COMPARISON: 05/26/2021 Liver: 13.9 cm in length. Normal size liver. No bile duct dilatation or mass. Gallbladder: Prior cholecystectomy. CBD: 0.6 cm Pancreas: Completely obscured by bowel gas. Right kidney: 9.4 cm in length. Normal size and echogenicity. No hydronephrosis or mass. Aorta and IVC: Unremarkable abdominal aorta and IVC. No ascites identified. No fluid collection at the gallbladder fossa. There is a very large amount of gas and shadowing throughout the abdomen. US/US gall bladder [id number] IMPRESSION: 1. Status post cholecystectomy. 2. No fluid collection in the gallbladder fossa or bile duct dilatation. 3. Large amount of gas obscuring portions of the abdomen. Dictated By: Almita Fox DO Signed By: Almita Fox DO Signed Date/Time: 06/14/21 1114 DD/ 1111 Discharge Plan Discharge Patient Disposition: Home Clinical Impression: Abdominal pain, Post-cholecystectomy syndrome Condition: Stable Prescriptions: New hydrocodone-acetaminophen 10-325 mg tablet 1 tab PO Q6H PRN (Reason: pain) Qty: 20 RF: 0 No Action hydrocodone-acetaminophen 5-325 mg tablet 1 tab PO Q8H PRN (Reason: pain) Qty: 7 RF: 0 baclofen 5 mg tablet 5 mg PO TID PRN (Reason: Pain) RF: 0 Discharge Orders: Discharge ED (Routine); Ordered 06/14/21 Ordered By: Lopez Mark Referrals: Kedar Guo DO [Primary Care Provider] - Discharge Diet: Clear Liquid Discharge Activity: Increase activity as tolerated Patient Instructions: Abdominal Pain (ED), Opioid Safety Sign Out Sign Out Data: Patient Sign Out occurred on 06/14/21 at 12:22. Patient's care was discussed, and care was transferred from to Lopez Mark DO. Coding Level of Care Code ED Strategic Communications Specialist for Chg Fwd Exam Comprehensive Documented by User: Lopez Mark DO 06/16/21 15:27 HPI - Abdominal Pain General: Chief Complaint: Abdominal Pain Stated Complaint: 2.5 wk post surgery/[facility] S:gallbladder;RUQ abd pain Time Seen by Provider: 06/14/21 09:43 History of Present Illness: HPI narrative: 40-year-old female. care assumed at change of shift reviewed note discussed with patient she is having right upper quadrant abdominal pain post cholecystectomy. 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 MD elicited complaint: abdominal pain Onset (ago): week(s) Pain Consistency: constant Location: Epigastric and RUQ Severity: moderate Quality: cramping Radiation: none Exacerbating factors: nothing Relieving factors: nothing Associated Symptoms: Denies anorexia, belching, bloating, change in bowel habits, change in stool character, chills, coffee ground emesis, constipation, GI cramping, diarrhea, dyspepsia, dysuria, excessive flatus, fever(s), heartburn, hematochezia, hematuria, hematemesis, fecal incontinence, loose stools, melena, nausea, poor appetite, syncope and vomiting Review of Systems Const: Denies: fever(s) or chills ENMT: Denies: throat pain, ear or mastoid pain, nasal discharge or nasal congestion Card: Denies: syncope Resp: Denies: dyspnea, productive cough or non-productive cough GI: Denies: nausea, vomiting, hematemesis, coffee ground emesis, heartburn, diarrhea, constipation, bloating, GI cramping, belching, excessive flatus, fecal incontinence, change in bowel habits, change in stool character, hematochezia or melena : Denies: dysuria or hematuria Skin/Breast: Denies: rash or pruritus PFSH ED PFSH: Medical History Menopause ovarian failure She was counseled regarding FSH level was suggesting ovarian failure due to radiation therapy her for vaginal malignancy. He was encouraged to continue use Osphena for her dyspareunia. Follow-up in one month. Mucinous adenocarcinoma Incidental finding at the time of excision of posterior vaginal wall cyst performed on 10/12/2018. Patient being evaluated by general surgery. Patient has also been referred to [facility] in [place] by Dr. Hardin. She was counseled regarding the pathology report of mucinous adenocarcinoma. She recently had a PET scan that was negative. She was informed by general surgeon that PET scan was negative and she is concern. 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 Pseudomyxoma peritonei develops at a variable rate, but may grow at a slower rate (indolent) than other malignancies within the abdomen which can explain the negative PET scan and incidental finding in the rectovaginal biopsy. If this is in fact pseudomyxoma peritonei the patient will be better served by referring her to a center with experience with this rare disease of approximately 2 cases per million individuals. I recommended the patient be referred to [facility] surgical oncology department with Dr. Wei Gonzalez who is nationally recognized expert in treating Mucinous adenocarcinomas. 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 This is a commonly observed side effect of such treatment. Her vaginal stenosis can be graded to grade 2, meaning vaginal narrowing and shortening interfering with sexual function. She was counseled regarding all treatment modalities include irregular nonnarcotic pain medication, intermittent hormonal cream, vaginal dilatation, and use of artificial lubrication. She referred she was advised not to use any hormones. Would consider treating with Osphena since is not hormonal treatment, but she was advised to continue with vaginal dilation stretch the vaginal mucosa breakdown adhesions to maintain vaginal patency. time 30 min Surgical History History of appendectomy History of dilation and curettage History of gastric surgery History of radial keratotomy History of repair of anterior cruciate ligament of left knee S/P laser cataract surgery Status post surgery (~10/12/18) Excision of vaginal wall cyst--Performed by Dr. Douglas Chase at [facility] in [place], [place]. Final pathology showed mucinous adenocarcinoma. Family History Grandmother Heart disease Paternal Lupus Paternal Diabetes Paternal Hypertension Paternal Unknown Patient denies medical problems Denies family history of: stroke, hypercholesterolemia, thryoid problems, breast cancer, ovarian cancer, uterine cancer,or colon cancer Social History Smoking and tobacco status: never smoked Alcohol intake: current Alcohol intake frequency: holidays/special occasions only Physical Exam Const: COMMON NORMALS: no acute distress GENERAL APPEARANCE: cooperative and comfortable ORIENTATION/CONSCIOUSNESS: Yes awake, Yes oriented to person, Yes oriented to place and Yes oriented to time HENMT: COMMON NORMALS: normocephalic, atraumatic, hearing grossly normal bilaterally and external ears normal HEAD & SCALP: normocephalic and atraumatic EXTERNAL EAR: Yes external ears normal Neck/C-Spine: COMMON NORMALS: no JVD Lymph: LYMPHATIC: no lymphadenopathy noted and no lymphedema noted Resp: COMMON NORMALS: normal respiratory effort, No retractions, No use of accessory muscles and clear to auscultation bilaterally AUSCULTATION: clear t o auscultation bilaterally Cardio: COMMON NORMALS: no JVD, regular rate, regular rhythm and No murmurs present (Cardio) RATE: regular rate RHYTHM: regular rhythm GI: COMMON NORMALS: No hepatosplenomegaly present AUSCULTATION: Yes normoactive bowel sounds PALPATION: Yes Tenderness to palpation present (GI) Details: RUQ, No Guarding due to palpation present (GI) and Yes No hepatosplenomegaly present Extremity: COMMON NORMALS: normal to inspection, capillary refill normal, no clubbing, cyanosis or edema, no calf tenderness and no pedal edema Neuro: SENSORIUM/ORIENTATION: Yes oriented to person, Yes oriented to place and Yes oriented to time Skin: COMMON NORMALS: no rashes or lesions noted GENERAL SKIN EXAM: no rashes or lesions noted Course Vital Signs: Vital signs: Vital Signs Temperature 98.8 F 06/14/21 10:00 Pulse Rate 68 06/14/21 13:42 Respiratory Rate 18 06/14/21 13:42 Blood Pressure 136/78 06/14/21 13:42 Pulse Oximetry 98 06/14/21 13:42 MDM - Abdominal Pain MDM Narrative: Medical decision making narrative: Increase hydrocodone and discharge patient home. She may need ERCP and/or EGD in the future to reevaluate for sludge in the bile duct or sphincter of Oddi. If has any worsening of symptoms return to the ER. Lab Data: Labs: Lab Results 06/14/21 06/14/21 Range/Units 11:52 11:52 WBC 6.3 (4.0-10.0) 10^3/ uL RBC 4.16 (4.1-5.3) 10^6/u L Hgb 13.5 (11.5-15.3) g/dL Hct 41.5 (37.0-47.0) % MCV 99.8 H (81-99) fL MCH 32.5 (28.0-34.0) pg MCHC 32.5 (30.0-36.0) g/dL RDW 12.2 (12.1-15.1) % Plt Count 216 (130-400) 10^3/c mm MPV 9.5 (7.4-10.4) fL Neut % (Auto) 68.6 % Lymph % (Auto) 17.1 % [place] % (Auto) 11.6 % Eos % (Auto) 1.6 % Baso % (Auto) 0.5 % Neut # (Auto) 4.32 (1.8-7.7) 10^3/u L Lymph # (Auto) 1.1 (0.8-4.8) 10^3/u L [place] # (Auto) 0.7 (0.2-0.9) 10^3/u L Eos # (Auto) 0.1 (0.0-0.8) 10^3/u L Baso # (Auto) 0.0 (0.0-0.1) 10^3/u L Nucleated RBC % (a uto) 0 % Nucleated RBCs # 0.0 /100WBC Sodium 140 (136-145) mmol/L Potassium 3.9 (3.5-5.1) mmol/L Chloride 105 (98-107) mmol/L Carbon Dioxide 26 (22-29) mmol/L Anion Gap 12.9 (5-19) BUN 12 (6-20) mg/dL Creatinine 0.6 (0.5-0.9) mg/dL GFR Calculation 109.6 (90-130) mL/min Glucose 72 (65-115) mg/dL Calculated Osmolal ity 288 (285-295) mOsm/k g Calcium 8.9 (8.5-10.5) mg/dL Total Bilirubin 0.7 (0.15-1.2) mg/dL AST 14 (0-32) U/L ALT 9 (0-33) U/L Alkaline Phosphata se 187 H (35-105) IU/L Total Protein 7.2 (6.6-8.7) g/dL Albumin 3.6 (3.5-5.2) g/dL Globulin 3.6 (1.3-4.6) g/dL Lipase 31 (13-60) U/L Discharge Plan Discharge Patient Disposition: Home Clinical Impression: Abdominal pain, Post-cholecystectomy syndrome Condition: Stable Prescriptions: New hydrocodone-acetaminophen 10-325 mg tablet 1 tab PO Q6H PRN (Reason: pain) Qty: 20 RF: 0 No Action hydrocodone-acetaminophen 5-325 mg tablet 1 tab PO Q8H PRN (Reason: pain) Qty: 7 RF: 0 baclofen 5 mg tablet 5 mg PO TID PRN (Reason: Pain) RF: 0 Discharge Orders: Discharge ED (Routine); Ordered 06/14/21 Ordered By: Lopez Mark Referrals: Kedar Guo DO [Primary Care Provider] - Discharge Diet: Clear Liquid Discharge Activity: Increase activity as tolerated Patient Instructions: Abdominal Pain (ED), Opioid Safety Sign Out Sign Out Data: Patient Sign Out occurred on 06/14/21 at 12:22. Patient's care was discussed, and care was transferred from to Lopez Mark DO. Coding Level of Care Code ED Strategic Communications Specialist for g Fwd Exam Comprehensive
--- NOTE | 2021-06-14 10:35 | US_ITS ---
WS: [id number] RIGHT UPPER QUADRANT ULTRASOUND HISTORY: RUQ pain, 2.5 weeks post op cholecystectomy COMPARISON: 05/26/2021 Liver: 13.9 cm in length. Normal size liver. No bile duct dilatation or mass. Gallbladder: Prior cholecystectomy. CBD: 0.6 cm Pancreas: Completely obscured by bowel gas. Right kidney: 9.4 cm in length. Normal size and echogenicity. No hydronephrosis or mass. Aorta and IVC: Unremarkable abdominal aorta and IVC. No ascites identified. No fluid collection at the gallbladder fossa. There is a very large amount of gas and shadowing throughout the abdomen. US/US gall bladder [id number] IMPRESSION: 1. Status post cholecystectomy. 2. No fluid collection in the gallbladder fossa or bile duct dilatation. 3. Large amount of gas obscuring portions of the abdomen.
[2021-06-14] MEDS: morphine 4 mg/mL SDV 1 mL IVP (11:06)
[2021-06-14 11:59] VITALS: BP 136/78; PULSE 68; RESP 18; O2SAT 98
[2021-06-14 12:17] LABS: Basophils % 0.5 %; Eosinophils # 0.1 10^3/uL (0.0-0.8); Eosinophils % 1.6 %; Hematocrit 41.5 % (37.0-47.0); Hemoglobin 13.5 g/dL (11.5-15.3); Lymphocytes # 1.1 10^3/uL (0.8-4.8); Lymphocytes % 17.1 %; Mean Corpuscular HGB Conc 32.5 g/dL (30.0-36.0); Mean Corpuscular Hemoglobin 32.5 pg (28.0-34.0); Mean Corpuscular Volume 99.8 fL (81-99); Mean Platelet Volume 9.5 fL (7.4-10.4); Monocytes # 0.7 10^3/uL (0.2-0.9); Monocytes % 11.6 %; Neutrophils # 4.32 10^3/uL (1.8-7.7); Neutrophils % 68.6 %; Nucleated Red Blood Cells % 0 %; Platelet Count 216 10^3/cmm (130-400); Red Blood Count 4.16 10^6/uL (4.1-5.3); Red Cell Distribution Width 12.2 % (12.1-15.1); White Blood Count 6.3 10^3/uL (4.0-10.0)
[2021-06-14 12:28] LABS: Alanine Aminotransferase 9 U/L (0-33); Albumin Level 3.6 g/dL (3.5-5.2); Alkaline Phosphatase 187 IU/L (35-105); Anion Gap 12.9 (5-19); Aspartate Amino Transferase 14 U/L (0-32); Blood Urea Nitrogen 12 mg/dL (6-20); Calcium 8.9 mg/dL (8.5-10.5); Carbon Dioxide 26 mmol/L (22-29); Chloride 105 mmol/L (98-107); Globulin 3.6 g/dL (1.3-4.6); Glomerular Filtration Rate 109.6 mL/min (90-130); Glucose 72 mg/dL (65-115); Lipase 31 U/L (13-60); Osmolality Calculated 288 mOsm/kg (285-295); Potassium 3.9 mmol/L (3.5-5.1); Sodium 140 mmol/L (136-145); Total Bilirubin 0.7 mg/dL (0.15-1.2); Total Protein 7.2 g/dL (6.6-8.7)
[2021-06-14 13:42] VITALS: BP 136/78; PULSE 68; RESP 18; O2SAT 98
== END 2021-06-14 13:42 | disposition home or self-care (01) ==
PROVIDERS: Physician Assistant; Emergency Provider Family Medicine; PCP Electrodiagnostic Medicine
DX: R10.9 Unspecified abdominal pain (principal); K91.5 Postcholecystectomy syndrome
CPT/HCPCS: 76705; 80053; 83690; 85025; 96374; 99283; J2270

== ENCOUNTER → 2024-10-03 09:57 | Outpatient (BNVA) | payer MEDICAID, SELFPAY | PROVIDERS: PCP Electrodiagnostic Medicine; Visit Provider Podiatrist Foot & Ankle Surgery | DX: M79.672 Pain in left foot (principal); M19.072 Primary osteoarthritis, left ankle and foot | CPT/HCPCS: 73630 ==

== ENCOUNTER 2025-01-12 13:05 | Outpatient (CLI) | payer MEDICAID, SELFPAY ==
--- NOTE | 2025-01-12 13:09 | XR_ITS ---
WS: [id number] DEXA (DUAL ENERGY X-RAY ABSORPTIOMETRY) Bone mineral density was performed using a [employer] machine. HISTORY: POSTMENOPAUSAL COMPARISON: None available. Lumbar spine BMD (L1-L4): 0.920 g/cm2 T score: -2.2 Z score: -3.2 Total hip BMD: Left: 0.937 g/cm2. T score: -0.6 Z score: -1.1 Right: 0.947 g/cm2. T score: -0.5 Z score: -1.0 10 year probability of a major osteoporotic fracture is 3.4%. XR/XR DEXA axial skeleton* [id number] IMPRESSION: OSTEOPENIA based upon the WHO classification for females.
== END 2025-01-12 13:06 | disposition home or self-care (01) ==
LOC: RAD 13:07
PROVIDERS: Visit Provider Family Medicine
DX: Z78.0 Asymptomatic menopausal state (principal); M85.80 Other specified disorders of bone density and structure, unspecified site
CPT/HCPCS: 77080